=== PATIENT | male | born 1950 | race Caucasian/White ===

== ENCOUNTER → 2017-04-02 | Outpatient (CLI) | payer MEDICARE ==
[2017-04-02 11:45] LABS: Cholesterol 161 mg/dL (<200); HDL Cholesterol 44 mg/dL (40-60)
== END | disposition home or self-care (01) ==
LOC: LABWHC1 10:02
PROVIDERS: ATTEND Family Medicine
DX: E78.5 Hyperlipidemia, unspecified (principal); I10 Essential (primary) hypertension; R73.09 Other abnormal glucose; L02.416 Cutaneous abscess of left lower limb
CPT/HCPCS: 36415; 80061

== ENCOUNTER → 2018-01-31 | Outpatient (CLI) | payer MEDICARE ==
--- NOTE | 2018-02-01 07:04 | MR ---
EXAMINATION TYPE: MR lumbar spine wo con DATE OF EXAM: 01/31/2018 COMPARISON: NONE HISTORY: Low back pain for 30 years into buttocks and left leg per patient. Low back pain per order. TECHNIQUE: Multiplanar, multisequence imaging of the lumbar spine is performed without IV contrast. FINDINGS: Survey images show S-shaped scoliosis dextroconvex at L3 level and levoconvex at L1 level. Sagittal images of the lumbar spine show vertebral body heights to appear satisfactory. Multilevel di sc desiccation with mild to moderate multilevel disc space narrowing that has relative sparing of L4- L5 and L5-S1 levels is present. Multilevel small posterior disc herniations are seen effacing anterio r thecal sac on sagittal images. The conus medullaris is slightly low in position ending L1-L2 disc space level. No abnormal signal is present. No suspicious clumping of lumbosacral nerve roots is not ed. There is overall heterogeneity with mild to moderate multilevel spurring in the upper lumbar spin e. Axial images at the T12-L1 level show mild broad disc bulge but spinal canal is preserved and bilater al neural foramina are patent. Axial images at the L1-L2 level shows mild to moderate broad disc bulge with right lateral disc protr usion component. There is effacement of the anterolateral thecal sac on axial image 22. There is asym metric mild right-sided anterior inferior neural foraminal narrowing. Left-sided neural foramen is pa tent. Axial images at the L2-L3 level shows moderate broad disc bulge effacing anterior thecal sac and caus ing asymmetric mild left-sided neural foraminal narrowing. Right-sided neural foramen is patent. Axial images at the L3-L4 level show mild to moderate left greater than right facet degenerative venegas ges and ligament hypertrophy effacing the posterior lateral thecal sac. There is moderate broad disc bulge with central disc protrusion component effacing anterior thecal sac on axial image 12. There is moderate right greater than left bilateral neural foraminal narrowing. Axial images at the L4-L5 level show moderate right greater than left facet degenerative changes and ligament flavum hypertrophy. There is broad-based posterior disc protrusion effacing anterior thecal sac on axial image 7. There is mild to moderate right greater than left bilateral anterior inferior n eural foraminal narrowing. Axial images at the L5-S1 level show moderate to advanced facet degenerative changes bilaterally. Spi nal canal is preserved. Bilateral neural foramina are patent. There are several round T2 hyperintense lesions throughout both kidneys felt to reflect simple cysts, largest is partially exophytic on the left upper pole level laterally measuring 3.1 cm on axial imag e 26. IMPRESSION: S-shaped scoliosis with multilevel degenerative changes as detailed above..
== END | disposition home or self-care (01) ==
LOC: RADMRIMAIN 19:31
PROVIDERS: ATTEND Family Medicine
DX: M48.061 Spinal stenosis, lumbar region without neurogenic claudication (principal); M51.26 Other intervertebral disc displacement, lumbar region; M47.816 Spondylosis without myelopathy or radiculopathy, lumbar region; M41.86 Other forms of scoliosis, lumbar region
CPT/HCPCS: 72148

== ENCOUNTER → 2018-03-28 | Day surgery (SDC) | payer MEDICARE ==
[2018-03-27 09:01] VITALS: BMI 34.4
[~2018-03-28] MED LIST: GLUCAGON 1 MG/ML VIAL ONE; LACTATED RINGERS 1,000 ML IV SCH; LIDOCAINE 1% 20 ML VIAL (10MG/ML) FOR IV START INTRADERMA ONE; PROPOFOL 10 MG/ML 20 ML VIAL IV ONE
[2018-03-28 07:19] VITALS: TEMP 96.8
[2018-03-28 07:24] LABS: Glucose,Whole Blood 127 mg/dL (75-99)
--- NOTE | 2018-03-28 07:57 | P.GSHP ---
History of Present Illness H&P Date: 03/28/18 Chief Complaint: Screening colonoscopy This is a 67-year-old male who presents today for screening colonoscopy. His last colonoscopy over 5 years ago. Past Medical History Past Medical History: Diabetes Mellitus, Hypertension History of Any Multi-Drug Resistant Organisms: None Reported Past Surgical History: Appendectomy, Joint Replacement, Orthopedic Surgery, Tonsillectomy Additional Past Surgical History / Comment(s): Shoulder Arthroscopy; Knee replacement; Colonoscopy Smoking Status: Former smoker - Past Family History Mother Family Medical History: No Reported History Medications and Allergies Home Medications Medication Instructions Recorded Confirmed Type Allopurinol [Zyloprim] 300 mg PO DAILY 03/27/18 03/27/18 History Citalopram Hydrobromide 10 mg PO DAILY 03/27/18 03/27/18 History [Citalopram HBr] Omeprazole 20 mg PO DAILY 03/27/18 03/27/18 History Ramipril [Altace] 5 mg PO DAILY 03/27/18 03/27/18 History metFORMIN HCL 1,000 mg PO DAILY 03/27/18 03/27/18 History Allergies Allergy/AdvReac Type Severity Reaction Status Date / Time No Known Allergies Allergy Verified 03/28/18 07:01 Surgical - Exam Vital Signs Temp Pulse Resp BP Pulse Ox 96.8 F L 75 18 176/89 96 03/28/18 07:05 03/28/18 07:05 03/28/18 07:05 03/28/18 07:05 03/28/18 07:05 - General well developed, no distress - Eyes PERRL - ENT normal pinna - Neck no masses - Respiratory normal expansion - Cardiovascular Rhythm: regular - Abdomen Abdomen: soft, non tender Results - Labs Abnormal Lab Results - Last 24 Hours (Table) 03/28/18 Range/Units 07:16 POC Glucose (mg/dL) 127 H (75-99) mg/dL Assessment and Plan Assessment: We'll perform screening colonoscopy.
--- NOTE | 2018-03-28 08:15 | P.OP ---
Date of Procedure: 03/28/18 Preoperative Diagnosis: Screening colonoscopy Postoperative Diagnosis: Diverticulosis Procedure(s) Performed: Colonoscopy Anesthesia: MAC Surgeon: Danielito Cohen Pathology: none sent Condition: stable Disposition: PACU Description of Procedure: Patient's placed on the operative table in the lateral position. He received IV sedation. Digital rectal exam was performed which revealed no significant abnormalities. The prostate was symmetric without nodules. The flexor colonoscope was then placed patient anus and passed throughout the colon. The scope could not be advanced beyond the splenic flexure secondary to tortuosity valve. The patient's colon was extremely tortuous with evidence of diverticular changes. Glucagon was given. The scope could not be passed beyond the splenic flexure. This point scope was withdrawn. The descending colon had diverticulosis. In the sigmoid colon there is extensive diverticular changes. Scope summer back the rectum and this appeared normal. Scope was withdrawn for patient. Patient was scheduled for a barium enema.
[2018-03-28 08:18] VITALS: PULSE 66; RESP 16
[2018-03-28 08:51] VITALS: BP 160/79
--- NOTE | 2018-03-28 11:12 | FL ---
EXAMINATION TYPE: FL barium enema DATE OF EXAM: 03/28/2018 COMPARISON: NONE HISTORY: Failed colonoscopy TECHNIQUE: A double contrast barium enema study is performed. 3 minutes and 4 seconds of fluoroscopy utilized and 35 images submitted. FINDINGS: Documentum Consultant view of the abdomen shows overall non-obstructive bowel gas pattern. Postsurgical ch franchesca left hip, severe arthropathy right hip, and multilevel degenerative disc disease noted. No evidence of any mass or polyp, obstructing or constricting lesion throughout the colon. Extensive diverticular changes of the sigmoid colon with wall thickening. No obstruction. Scattered diverticula are seen throughout the remaining portion of the colon. There is somewhat limited assessment of the right colon due to retained fecal debris and retained water. IMPRESSION: 1. Extensive diverticulosis with the most marked findings involving the sigmoid colon which could be correlated with direct visualization.
== END ==
LOC: ORWHC2ENDO 06:40
PROVIDERS: ATTEND Surgery
DX: Z12.11 Encounter for screening for malignant neoplasm of colon (principal); K57.30 Diverticulosis of large intestine without perforation or abscess without bleeding; Q43.8 Other specified congenital malformations of intestine; E11.9 Type 2 diabetes mellitus without complications; I10 Essential (primary) hypertension; K21.9 Gastro-esophageal reflux disease without esophagitis; Z79.84 Long term (current) use of oral hypoglycemic drugs; Z79.899 Other long term (current) drug therapy; Z96.659 Presence of unspecified artificial knee joint; Z87.891 Personal history of nicotine dependence
CPT/HCPCS: 74270; J1610; J2704; G0104

== ENCOUNTER → 2018-04-04 | Outpatient (CLI) | payer MEDICARE ==
[2018-04-04 17:53] LABS: HCT 42.4 % (39.0-53.0); HGB 14.8 gm/dL (13.0-17.5); MCH 30.3 pg (25.0-35.0); MCHC 34.9 g/dL (31.0-37.0); MCV 86.9 fL (80.0-100.0); Mean Platelet Volume 6.7; Platelet Count 193 k/uL (150-450); RBC 4.88 m/uL (4.30-5.90); RDW 13.7 % (11.5-15.5); WBC 6.9 k/uL (3.8-10.6)
[2018-04-04 18:00] LABS: Potassium 4.5 mmol/L (3.5-5.1)
== END | disposition home or self-care (01) ==
LOC: LABPAT 16:46
PROVIDERS: ATTEND Surgery
DX: Z01.818 Encounter for other preprocedural examination (principal); Z01.812 Encounter for preprocedural laboratory examination; K57.32 Diverticulitis of large intestine without perforation or abscess without bleeding
CPT/HCPCS: 36415; 80051; 85027; 86850; 86900; 86901; 93005

== ENCOUNTER 2018-04-07 08:41 | Inpatient (IN) | payer MEDICARE ==
[2018-04-05 14:13] VITALS: BMI 34.4
[~2018-04-07 08:41] MED LIST changes: +DEXAMETHASONE SOD PHOSPHATE 10 MG/ML 1 ML VIAL IV ONE; -GLUCAGON 1 MG/ML VIAL ONE; +HEPARIN SODIUM,PORCINE 5,000 UNIT/ML 1 ML VIAL SQ ONE; +HYDROmorphone 1 MG/ML 1 ML SYRINGE IVP PRN; -LACTATED RINGERS 1,000 ML IV SCH; -LIDOCAINE 1% 20 ML VIAL (10MG/ML) FOR IV START INTRADERMA ONE; +MIDAZOLAM 2 MG/2 ML VIAL IV PRN; +ONDANSETRON 4 MG/2 ML VIAL IVP ONE; -PROPOFOL 10 MG/ML 20 ML VIAL IV ONE; +ceFAZolin IN SWFI 2 GM/20 ML SYRINGE IVP ONE; +metroNIDAZOLE-NS PMX 500 MG in SALINE 1 100ML.BAG IVPB ONE
[2018-04-07] MEDS: LACTATED RINGERS 1,000 ML IV SCH (09:28)
[2018-04-07 09:31] LABS: Glucose,Whole Blood 101 mg/dL (75-99)
[2018-04-07] MEDS ORDERED: NALOXONE 0.4 MG/ML 1 ML VIAL IV PRN (10:56)
[2018-04-07] MEDS ORDERED: ALVIMOPAN 12 MG CAPSULE PO ONE (11:21)
[2018-04-07] MEDS ORDERED: ACETAMINOPHEN TAB 500 MG TAB PO STA (11:24)
--- NOTE | 2018-04-07 11:24 | P.GSHP ---
History of Present Illness H&P Date: 04/07/18 Chief Complaint: diverticulitis this is a 67-year-old male referred from Dr. Andnio. Patient rents today for low anterior section. Patient has had chronic history of diverticulitis. Patient states that he has hadave diverticulitis over the last 20 years.patient presents today for sigmoid colectomy with low anterior section. Patient with a risk of colostomy, wound infection, bleeding - Constitutional Constitutional: Reports as per HPI Past Medical History Past Medical History: Diabetes Mellitus, Hypertension Additional Past Medical History / Comment(s): diverticulitis-narrowing bowel History of Any Multi-Drug Resistant Organisms: None Reported Past Surgical History: Appendectomy, Joint Replacement, Orthopedic Surgery, Tonsillectomy Additional Past Surgical History / Comment(s): Shoulder Arthroscopy; Knee replacement; Colonoscopy Past Anesthesia/Blood Transfusion Reactions: No Reported Reaction Additional Past Anesthesia/Blood Transfusion Reaction / Comment(s): no hx blood transfusion Smoking Status: Former smoker - Past Family History Mother Family Medical History: No Reported History Medications and Allergies Home Medications Medication Instructions Recorded Confirmed Type Allopurinol [Zyloprim] 300 mg PO DAILY 03/27/18 04/07/18 History Omeprazole 20 mg PO QAM 03/27/18 04/07/18 History Ramipril [Altace] 5 mg PO QAM 03/27/18 04/07/18 History metFORMIN HCL 1,000 mg PO DAILY 03/27/18 04/07/18 History Escitalopram [Lexapro] 10 mg PO QAM 04/05/18 04/07/18 History Allergies Allergy/AdvReac Type Severity Reaction Status Date / Time No Known Allergies Allergy Verified 04/05/18 12:48 Surgical - Exam Vital Signs Temp Pulse Resp BP Pulse Ox 98.1 F 81 16 139/80 96 04/07/18 09:23 04/07/18 09:23 04/07/18 09:23 04/07/18 09:23 04/07/18 09:23 - General well developed, well nourished, no distress - Eyes PERRL - ENT normal pinna - Neck no masses - Respiratory normal expansion - Cardiovascular Rhythm: regular - Abdomen mild left lower quadrant. Abdomen: soft Results - Labs Abnormal Lab Results - Last 24 Hours (Table) 04/07/18 Range/Units 09:27 POC Glucose (mg/dL) 101 H (75-99) mg/dL Assessment and Plan Assessment: history of chronic diverticulitis. We will perform a low anterior resection.
[2018-04-07] MEDS ORDERED: MELOXICAM 7.5 MG TAB PO STA (11:27)
[2018-04-07] MEDS ORDERED: PROPOFOL 10 MG/ML 20 ML VIAL IV ONE (12:17)
[2018-04-07] MEDS ORDERED: LIDOCAINE 1% INJ 10MG/ML (20 ML MDV) ONE (12:17)
[2018-04-07] MEDS ORDERED: ROCURONIUM BROMIDE 10 MG/ML 10 ML VIAL IV ONE (12:17)
[2018-04-07] MEDS ORDERED: SUCCINYLCHOLINE CHLORIDE 100 MG/5 ML SYR IV ONE (12:17)
[2018-04-07] MEDS ORDERED: MIDAZOLAM 2 MG/2 ML VIAL ONE (12:17)
[2018-04-07] MEDS ORDERED: ePHEDrine SULFATE/0.9% NACL/PF 50 MG/5 ML SYRINGE IV ONE (12:17)
[2018-04-07] MEDS ORDERED: GLYCOPYRROLATE 0.2 MG/ML 2 ML VIAL ONE (12:17)
[2018-04-07] MEDS ORDERED: PHENYLEPHRINE-0.9% NACL SYG 1 MG/10 ML SYRINGE ONE (12:17)
[2018-04-07] MEDS ORDERED: fentaNYL (PF) 50 MCG/ML 2 ML AMP ONE (12:17)
[2018-04-07] MEDS ORDERED: NEOSTIGMINE 1 MG/ML 10 ML VIAL ONE (12:17)
[2018-04-07] MEDS ORDERED: LACTATED RINGERS 1,000 ML IV ONE ×4 (12:57→15:06)
[2018-04-07] MEDS: ROPIVACAINE 250 MG, HYDROMORPHONE (PF) 5 MG in SODIUM CHLORIDE 0.9% 200 ML EPIDURAL PRN ×3 (14:12→15:25)
[2018-04-07] MEDS ORDERED: HYDROmorphone 1 MG/ML 1 ML SYRINGE IVP PRN (15:06)
[2018-04-07] MEDS ORDERED: ONDANSETRON 4 MG/2 ML VIAL IVP PRN (15:06)
[2018-04-07] MEDS ORDERED: METOCLOPRAMIDE 5 MG/ML 2 ML VIAL IVP PRN (15:06)
[2018-04-07] MEDS ORDERED: BENZOCAINE/MENTHOL LOZENG 1 EACH LOZENGE MUCOUS MEM PRN (15:06)
--- NOTE | 2018-04-07 15:41 | P.OP ---
Date of Procedure: 04/07/18 Preoperative Diagnosis: diverticulitis Ventral hernia Postoperative Diagnosis: diverticulitis Ventral hernia incarcerated Procedure(s) Performed: low anterior section Repair of incarcerated ventral hernia Partial omentectomy Anesthesia: ARPITA Surgeon: Danielito Cohen Estimated Blood Loss (ml): 50 Pathology: other (omentum) Condition: stable Disposition: PACU Description of Procedure: tDESCRIPTION OF PROCEDURE: The patient was placed on the operating table in the supine position. Patient received a general anesthesia. Patient was then placed in the dorsal lithotomy position. The patients abdomen was prepped and draped in the usual sterile fashion. the patient had a small ventral hernia located above the bellybutton.Through a low midline incision, the abdomen was entered. the incarcerated omentum was transected free from the hernia. The [place] retractor was placed in the wound. The stomach appeared normal. The small bowel appeared normal. The liver appeared normal. The right colon and transverse colon appeared normal. On the left colon, there was an extensive diverticulosis noted. The sigmoid colon was then mobilized by dividing the white line of Toldt with electrocautery. At this point, the proximal sigmoid colon was transected with a GI stapler after a window had been made in the mesentery. The distal sigmoid colon was then dissected. Mesentery was taken down between Spring clamps and ligated with #0 silk ties. At a point beyond the lesion, the bowel was then transected with a Proximate stapler. This was then removed. The splenic flexure was then taken down in order to provide adequate lengthening of the sigmoid colon. At this point, the auto purse-string suture device was placed across the proximal colon and fired. The colon was then opened. The 29 mm EEA anvil was then placed into the colon and then the purse- string was secured. The EEA stapler device was then placed in the patients anus and passed into the rectum. The nail for the EEA was then brought out through the distal rectum and then attached to the anvil. The EEA stapler device was then fired. The anastomosis was inspected. There were 2 good donuts of tissue removed from the EEA stapler. The anastomosis was then tested under water and there was no air leak seen. At this point the abdomen was then irrigated. There was no bleeding seen. The fascia was then closed with double stranded #1 PDS. the hernia repair was closed with the fascial closure.The skin was closed with virgilio. The patient tolerated the procedure well.
[2018-04-07 16:24] LABS: Glucose,Whole Blood 164 mg/dL (75-99)
[2018-04-07] MEDS: D5-0.45% NACL WITH KCL 20MEQ/L 1,000 ML IV SCH (17:17)
[2018-04-07] MEDS: HEPARIN SODIUM,PORCINE 5,000 UNIT/ML 1 ML VIAL SQ SCH (17:17)
[2018-04-07] MEDS ORDERED: diphenhydrAMINE 50 MG/ML 1 ML VIAL IVP PRN (17:21)
[2018-04-07 17:39] LABS: Basophils % (A) 0 %; Eosinophils % (A) 0 %; HCT 39.6 % (39.0-53.0); HGB 13.5 gm/dL (13.0-17.5); Lymphocytes # (A) 0.8 k/uL (1.0-4.8); Lymphocytes % (A) 6 %; MCH 30.2 pg (25.0-35.0); MCHC 34.2 g/dL (31.0-37.0); MCV 88.3 fL (80.0-100.0); Mean Platelet Volume 6.7; Monocytes # (A) 0.7 k/uL (0-1.0); Monocytes % (A) 6 %; Neutrophils # (A) 11.1 k/uL (1.3-7.7); Neutrophils % (A) 88 %; Platelet Count 187 k/uL (150-450); RBC 4.48 m/uL (4.30-5.90); RDW 13.9 % (11.5-15.5); WBC 12.6 k/uL (3.8-10.6)
[2018-04-07 18:34] LABS: Anion Gap 9 mmol/L; Blood Urea Nitrogen 20 mg/dL (9-20); Calcium 8.5 mg/dL (8.4-10.2); Carbon Dioxide 27 mmol/L (22-30); Chloride 101 mmol/L (98-107); Glucose 158 mg/dL (74-99); Potassium 4.7 mmol/L (3.5-5.1); Sodium 137 mmol/L (137-145)
[2018-04-07] MEDS: FAMOTIDINE 20 MG/2 ML VIAL IV SCH (21:01)
[2018-04-07] MEDS: NALBUPHINE 10 MG/ML VIAL (10ML MDV) IV PRN (23:14)
[2018-04-08] MEDS: D5-0.45% NACL WITH KCL 20MEQ/L 1,000 ML IV SCH ×3 (02:32→23:06)
[2018-04-08] MEDS: HEPARIN SODIUM,PORCINE 5,000 UNIT/ML 1 ML VIAL SQ SCH ×3 (02:33→16:30)
[2018-04-08] MEDS: NALBUPHINE 10 MG/ML VIAL (10ML MDV) IV PRN ×3 (05:27→20:35)
[2018-04-08] MEDS: LACTATED RINGERS 1,000 ML IV SCH (08:28)
[2018-04-08] MEDS: FAMOTIDINE 20 MG/2 ML VIAL IV SCH ×2 (08:28→20:34)
[2018-04-08] MEDS: ALVIMOPAN 12 MG CAPSULE PO SCH ×2 (08:28→20:33)
--- NOTE | 2018-04-08 08:45 | P.CONS ---
History of Present Illness - Reason for Consult Consult date: 04/08/18 Physical management of diabetes and hypertension - History of Present Illness Toby is a 67-year-old white male well-known to me. He is status post low anterior resection and repair of incarcerated ventral hernia amount of partial omentectomy for ongoing diverticulitis. Feeling well this morning. He has a little anesthetic still in place. His pain is shoulder this time. He denies any chest pains, pressures, or shortness of breath. He denies any nausea or vomiting recently. He is been nothing by mouth till this morning. He has been advanced to clear liquid diet. His sugars and blood pressure remained controlled. Review of Systems All systems: negative Past Medical History Past Medical History: Diabetes Mellitus, Hypertension Additional Past Medical History / Comment(s): diverticulitis-narrowing bowel, Goutt, MRSA right knee January 2017 History of Any Multi-Drug Resistant Organisms: None Reported Past Surgical History: Appendectomy, Joint Replacement, Orthopedic Surgery, Tonsillectomy Additional Past Surgical History / Comment(s): Shoulder Arthroscopy; Colonoscopy Past Anesthesia/Blood Transfusion Reactions: No Reported Reaction Additional Past Anesthesia/Blood Transfusion Reaction / Comm: no hx blood transfusion Past Psychological History: No Psychological Hx Reported Smoking Status: Former smoker Past Alcohol Use History: Occasional Additional Past Alcohol Use History / Comment(s): smoked from teens until age 49 ; smoked 1 1/2 - 2 ppd Past Drug Use History: None Reported - Past Family History Mother Family Medical History: No Reported History Medications and Allergies Home Medications Medication Instructions Recorded Confirmed Type Allopurinol [Zyloprim] 300 mg PO DAILY 03/27/18 04/07/18 History Omeprazole 20 mg PO QAM 03/27/18 04/07/18 History Ramipril [Altace] 5 mg PO QAM 03/27/18 04/07/18 History metFORMIN HCL 1,000 mg PO DAILY 03/27/18 04/07/18 History Escitalopram [Lexapro] 10 mg PO QAM 04/05/18 04/07/18 History Allergies Allergy/AdvReac Type Severity Reaction Status Date / Time No Known Allergies Allergy Verified 04/07/18 17:16 Physical Exam Vitals: Vital Signs Temp Pulse Resp BP Pulse Ox 04/08/18 03:01 96.8 F L 82 16 106/66 95 04/07/18 20:17 98.6 F 84 16 123/74 94 L 04/07/18 19:03 83 131/75 04/07/18 18:45 73 119/70 04/07/18 18:30 71 117/78 04/07/18 18:15 68 121/76 04/07/18 18:00 67 120/80 04/07/18 17:45 97.8 F 68 16 121/75 95 04/07/18 16:10 61 16 125/63 98 04/07/18 15:50 62 16 97/58 96 04/07/18 15:35 65 16 96/56 95 04/07/18 15:20 58 L 16 92/50 96 04/07/18 15:15 58 L 16 92/55 93 L 04/07/18 14:57 60 16 99/58 94 L 04/07/18 14:42 66 16 145/87 93 L 04/07/18 14:27 67 16 141/73 94 L 04/07/18 14:12 98 F 72 16 138/70 96 04/07/18 10:40 89 15 102/61 95 04/07/18 09:23 98.1 F 81 16 139/80 96 Intake and Output 04/07/18 04/08/18 04/08/18 22:59 06:59 14:59 Intake Total 1147 Output Total 1700 Balance 1147 -1700 Intake: IV 1067 Intake, IV Titration 80 Amount Lactated Ringers 1,000 ml 80 @ 20 mls/hr IV .Q24H [facility] Rx#:[id number] Output: Urine 1700 Other: Voiding Method Indwelling Catheter Weight 99.79 kg GENERAL: Well-appearing, well-nourished and in no acute distress. HEAD: Atraumatic, normocephalic. EYES: Pupils equal round and reactive to light, extraocular movements intact, sclera anicteric, conjunctiva are normal. ENT:nares patent, oropharynx clear without exudates. Moist mucous membranes. NECK: Normal range of motion, supple without lymphadenopathy or JVD, no thyromegaly LUNGS: Breath sounds clear to auscultation bilaterally and equal. No wheezes rales or rhonchi. HEART: Regular rate and rhythm without murmurs, rubs or gallops.S1S2 Normal ABDOMEN: Soft hypoactive bowel sounds, abdomen is palpated minimally due to his recent abdominal surgery. It is slightly distended this morning. EXTREMITIES: Normal range of motion, no pitting or edema. No clubbing or cyanosis. NEUROLOGICAL: Cranial nerves II through XII grossly intact. Normal speech, normal gait. PSYCH: Normal mood, normal affect. SKIN: Warm, Dry, normal turgor, no rashes or lesions noted. Results CBC & Chem 7: 04/07/18 16:54 04/07/18 16:54 Labs: Abnormal Lab Results - Last 24 Hours (Table) 04/07/18 04/07/18 04/07/18 Range/Units 09:27 16:13 16:54 WBC 12.6 H (3.8-10.6) k/uL Neutrophils # 11.1 H (1.3-7.7) k/uL Lymphocytes # 0.8 L (1.0-4.8) k/uL Glucose (74-99) mg/dL POC Glucose (mg/dL) 101 H 164 H (75-99) mg/dL 04/07/18 Range/Units 16:54 WBC (3.8-10.6) k/uL Neutrophils # (1.3-7.7) k/uL Lymphocytes # (1.0-4.8) k/uL Glucose 158 H (74-99) mg/dL POC Glucose (mg/dL) (75-99) mg/dL Assessment and Plan (1) Essential (primary) hypertension Current Visit: Yes Status: Chronic Code(s): I10 - ESSENTIAL (PRIMARY) HYPERTENSION SNOMED Code(s): 02449779 (2) Type 2 diabetes mellitus without complications Current Visit: Yes Status: Chronic Code(s): E11.9 - TYPE 2 DIABETES MELLITUS WITHOUT COMPLICATIONS SNOMED Code(s): 750949340 (3) S/P ventral herniorrhaphy Current Visit: Yes Status: Acute Code(s): Z98.890 - OTHER SPECIFIED POSTPROCEDURAL STATES; Z87.19 - PERSONAL HISTORY OF OTHER DISEASES OF THE DIGESTIVE SYSTEM SNOMED Code(s): 97386285704208 (4) Diverticulosis Current Visit: Yes Status: Chronic Code(s): K57.90 - DVRTCLOS OF INTEST, PART UNSP, W/O PERF OR ABSCESS W/O BLEED SNOMED Code(s): 44816189 (5) History of abdominal surgery Current Visit: Yes Status: Acute Code(s): Z98.890 - OTHER SPECIFIED POSTPROCEDURAL STATES SNOMED Code(s): 827458233 (6) Gout Current Visit: Yes Status: Chronic Code(s): M10.9 - GOUT, UNSPECIFIED SNOMED Code(s): 10003269 (7) Moderate major depression Current Visit: Yes Status: Chronic Code(s): F32.1 - MAJOR DEPRESSIVE DISORDER, SINGLE EPISODE, MODERATE SNOMED Code(s): 296173 Plan: Management and diet advanced per surgery. Is currently on subcutaneous heparin for DVT prophylaxis. He can remain on insulin scale at this time for diabetic control. He can restart his Lexapro, allopurinol, and Altase today. He'll restart metformin tomorrow. Thank you for allowing me to participate in this patient's care.
[2018-04-08] MEDS: ESCITALOPRAM 10 MG TAB PO SCH (10:33)
[2018-04-08] MEDS: ALLOPURINOL 300 MG TAB PO SCH (10:35)
[2018-04-08] MEDS: LISINOPRIL 20 MG TAB PO SCH (10:36)
[2018-04-08] MEDS ORDERED: ONDANSETRON 4 MG/2 ML VIAL IVP PRN (11:24)
--- NOTE | 2018-04-08 11:24 | P.PN ---
Progress Note - Text Progress Note Date: 04/08/18 67-year-old male status post low anterior resection postop and her 1 epidural catheter day #2. Patient has no motor sensory deficits. VAS is a 1 out of 10 in severity. Patient has not yet ambulated. Patient had complain of significant pruritus and Nubain 2.5 mg IV every 6 hours was written for him last night, however patient still has complaints. I will add Zofran 4 mg every 8 hours and if it doesn't improve by the end of the day likely ordering the epidural solution without narcotic. Plan is to continue epidural settings at 4 ML's an hour.
[2018-04-08 12:17] LABS: Glucose,Whole Blood 122 mg/dL (75-99)
--- NOTE | 2018-04-08 12:29 | P.PN ---
Subjective Progress Note Date: 04/08/18 Principal diagnosis: Diverticulitis Patient doing well today. Epidurals controlling his pain nicely. He did pass flatus. No labs thus far from today. He is tolerating his clears and asking for more to eat. Objective - Vital Signs Vital signs: Vital Signs Temp 98.6 F 04/08/18 07:00 Pulse 78 04/08/18 07:00 Resp 18 04/08/18 07:00 BP 138/76 04/08/18 07:00 Pulse Ox 95 04/08/18 07:00 Intake & Output 04/07/18 04/08/18 04/08/18 18:59 06:59 18:59 Intake Total 3067 80 Output Total 300 1700 Balance 2767 -1620 Weight 99.79 kg Intake: IV 3067 Intake, IV Titration 80 Amount Lactated Ringers 1,000 ml 80 @ 20 mls/hr IV .Q24H [facility] Rx#:[id number] Output: Urine 250 1700 Estimated Blood Loss 50 Other: Voiding Method Indwelling Catheter Indwelling Catheter - Exam Abdomen: Soft, nondistended, incision clean and dry, mild tenderness - Labs CBC & Chem 7: 04/07/18 16:54 04/07/18 16:54 Labs: Abnormal Lab Results - Last 24 Hours (Table) 04/07/18 04/07/18 04/07/18 Range/Units 16:13 16:54 16:54 WBC 12.6 H (3.8-10.6) k/uL Neutrophils # 11.1 H (1.3-7.7) k/uL Lymphocytes # 0.8 L (1.0-4.8) k/uL Glucose 158 H (74-99) mg/dL POC Glucose (mg/dL) 164 H (75-99) mg/dL 04/08/18 Range/Units 12:16 WBC (3.8-10.6) k/uL Neutrophils # (1.3-7.7) k/uL Lymphocytes # (1.0-4.8) k/uL Glucose (74-99) mg/dL POC Glucose (mg/dL) 122 H (75-99) mg/dL Assessment and Plan (1) Diverticulosis Narrative/Plan: Increase diet to full liquids. Ambulate. Keep epidural and Johansen catheter. Check labs. Current Visit: Yes Status: Chronic Code(s): K57.90 - DVRTCLOS OF INTEST, PART UNSP, W/O PERF OR ABSCESS W/O BLEED SNOMED Code(s): 12154765
[2018-04-08] MEDS: INSULIN ASPART 100 UNIT/ML 1 ML 10 ML VIAL SQ SCH ×3 (12:41→20:34)
[2018-04-08 13:23] LABS: Basophils % (A) 0 %; Eosinophils % (A) 0 %; HCT 39.4 % (39.0-53.0); HGB 13.2 gm/dL (13.0-17.5); Lymphocytes # (A) 1.7 k/uL (1.0-4.8); Lymphocytes % (A) 17 %; MCH 29.3 pg (25.0-35.0); MCHC 33.5 g/dL (31.0-37.0); MCV 87.6 fL (80.0-100.0); Mean Platelet Volume 7.5; Monocytes # (A) 0.8 k/uL (0-1.0); Monocytes % (A) 8 %; Neutrophils # (A) 7.5 k/uL (1.3-7.7); Neutrophils % (A) 73 %; Platelet Count 190 k/uL (150-450); RBC 4.49 m/uL (4.30-5.90); RDW 13.9 % (11.5-15.5); WBC 10.3 k/uL (3.8-10.6)
[2018-04-08 13:42] LABS: Anion Gap 7 mmol/L; Blood Urea Nitrogen 16 mg/dL (9-20); Calcium 8.7 mg/dL (8.4-10.2); Carbon Dioxide 30 mmol/L (22-30); Chloride 99 mmol/L (98-107); Glucose 113 mg/dL (74-99); Potassium 4.4 mmol/L (3.5-5.1); Sodium 136 mmol/L (137-145)
[2018-04-08 16:32] LABS: Glucose,Whole Blood 106 mg/dL (75-99)
[2018-04-08 19:43] LABS: Hemoglobin A1C 5.4 % (4.0-6.0)
[2018-04-08 20:00] LABS: Glucose,Whole Blood 152 mg/dL (75-99)
[2018-04-09] MEDS: HEPARIN SODIUM,PORCINE 5,000 UNIT/ML 1 ML VIAL SQ SCH ×3 (01:22→15:22)
[2018-04-09] MEDS: NALBUPHINE 10 MG/ML VIAL (10ML MDV) IV PRN (01:36)
[2018-04-09 07:09] LABS: Glucose,Whole Blood 117 mg/dL (75-99)
[2018-04-09] MEDS: INSULIN ASPART 100 UNIT/ML 1 ML 10 ML VIAL SQ SCH ×4 (08:08→21:59)
[2018-04-09 08:34] LABS: Basophils % (A) 0 %; Eosinophils # (A) 0.2 k/uL (0-0.7); Eosinophils % (A) 2 %; HCT 38.7 % (39.0-53.0); HGB 13.1 gm/dL (13.0-17.5); Lymphocytes # (A) 1.4 k/uL (1.0-4.8); Lymphocytes % (A) 19 %; MCHC 33.9 g/dL (31.0-37.0); MCV 88.6 fL (80.0-100.0); Mean Platelet Volume 7.3; Monocytes # (A) 0.7 k/uL (0-1.0); Monocytes % (A) 10 %; Neutrophils # (A) 4.8 k/uL (1.3-7.7); Neutrophils % (A) 66 %; Platelet Count 158 k/uL (150-450); RBC 4.37 m/uL (4.30-5.90); RDW 14.1 % (11.5-15.5); WBC 7.3 k/uL (3.8-10.6)
[2018-04-09 08:40] LABS: Anion Gap 8 mmol/L; Blood Urea Nitrogen 14 mg/dL (9-20); Calcium 8.6 mg/dL (8.4-10.2); Carbon Dioxide 25 mmol/L (22-30); Chloride 104 mmol/L (98-107); Glucose 110 mg/dL (74-99); Potassium 4.7 mmol/L (3.5-5.1); Sodium 137 mmol/L (137-145)
[2018-04-09] MEDS: D5-0.45% NACL WITH KCL 20MEQ/L 1,000 ML IV SCH ×4 (10:21→18:00)
[2018-04-09] MEDS: ESCITALOPRAM 10 MG TAB PO SCH (10:22)
[2018-04-09] MEDS: ALVIMOPAN 12 MG CAPSULE PO SCH ×2 (10:22→21:59)
[2018-04-09] MEDS: PANTOPRAZOLE 40 MG TABLET PO SCH (10:22)
[2018-04-09] MEDS: ALLOPURINOL 300 MG TAB PO SCH (10:22)
[2018-04-09] MEDS: LISINOPRIL 20 MG TAB PO SCH (10:23)
[2018-04-09] MEDS: metFORMIN 500 MG TAB PO SCH (10:23)
[2018-04-09] MEDS: FAMOTIDINE 20 MG/2 ML VIAL IV SCH ×2 (10:23→21:59)
--- NOTE | 2018-04-09 11:01 | P.PN ---
Subjective Progress Note Date: 04/09/18 Principal diagnosis: Diverticulitis Patient's epidural rate decreased to 2.5 because of itching. Pain has increased somewhat however. Describes bloating. He is passing flatus. Denies nausea or vomiting. White blood cell count 7.3. Objective - Vital Signs Vital signs: Vital Signs Temp 98.7 F 04/08/18 23:22 Pulse 75 04/08/18 23:22 Resp 17 04/08/18 23:22 BP 109/61 04/08/18 23:22 Pulse Ox 94 L 04/08/18 21:05 Intake & Output 04/08/18 04/09/18 04/09/18 18:59 06:59 18:59 Intake Total 1540 1310 Output Total 2500 1300 Balance -2500 240 1310 Intake: Intake, IV Titration 1040 1010 Amount D5-0.45% NaCl with KCl 1000 1000 20Meq/l 1,000 ml @ 125 mls/hr IV .Q8H [facility] Rx#: [id number] Ropivacaine 250 mg 40 10 Hydromorphone (Pf) 5 mg In Sodium Chloride 0.9% 200 ml @ Per Protocol EPIDURAL .Q0M PRN Rx#: [id number] Oral 500 300 Output: Urine 2500 1300 Other: Voiding Method Indwelling Catheter Indwelling Catheter # Voids 0 - Exam Abdomen: Soft, mild distention, mild tenderness, incision clean and dry - Labs CBC & Chem 7: 04/09/18 07:57 04/09/18 07:57 Labs: Abnormal Lab Results - Last 24 Hours (Table) 04/08/18 04/08/18 04/08/18 Range/Units 12:16 13:13 16:31 Hct (39.0-53.0) % Sodium 136 L (137-145) mmol/L Glucose 113 H (74-99) mg/dL POC Glucose (mg/dL) 122 H 106 H (75-99) mg/dL 04/08/18 04/09/18 04/09/18 Range/Units 19:58 07:08 07:57 Hct 38.7 L (39.0-53.0) % Sodium (137-145) mmol/L Glucose (74-99) mg/dL POC Glucose (mg/dL) 152 H 117 H (75-99) mg/dL 04/09/18 Range/Units 07:57 Hct (39.0-53.0) % Sodium (137-145) mmol/L Glucose 110 H (74-99) mg/dL POC Glucose (mg/dL) (75-99) mg/dL Assessment and Plan (1) Diverticulosis Narrative/Plan: Increase activity level. Increase epidural rate to 4. Stay on liquids only. Current Visit: Yes Status: Chronic Code(s): K57.90 - DVRTCLOS OF INTEST, PART UNSP, W/O PERF OR ABSCESS W/O BLEED SNOMED Code(s): 23621345
[2018-04-09] MEDS: LACTATED RINGERS 1,000 ML IV SCH (11:36)
[2018-04-09 11:55] LABS: Glucose,Whole Blood 135 mg/dL (75-99)
--- NOTE | 2018-04-09 13:44 | P.PN ---
Subjective Toby is a 67-year-old white male well-known to me. He is status post low anterior resection and repair of incarcerated ventral hernia amount of partial omentectomy for ongoing diverticulitis. Feeling well this morning. He has a little anesthetic still in place. His pain is shoulder this time. He denies any chest pains, pressures, or shortness of breath. He denies any nausea or vomiting recently. He is been nothing by mouth till this morning. He has been advanced to clear liquid diet. His sugars and blood pressure remained controlled. 04/09/2018: Toby is pain is controlled with an epidural. He has some itching with this. He denies any nausea or vomiting. He indicates he is passing flatus. He has full liquid diet currently. He denies any chest pains, pressures or shortness of breath. Objective - Vital Signs Vital signs: Vital Signs Temp 97.5 F L 04/09/18 07:00 Pulse 77 04/09/18 07:00 Resp 16 04/09/18 07:00 BP 135/87 04/09/18 07:00 Pulse Ox 94 L 04/09/18 07:00 Intake & Output 04/08/18 04/09/18 04/09/18 18:59 06:59 18:59 Intake Total 1540 1310 Output Total 2500 1300 Balance -2500 240 1310 Intake: Intake, IV Titration 1040 1010 Amount D5-0.45% NaCl with KCl 1000 1000 20Meq/l 1,000 ml @ 125 mls/hr IV .Q8H [facility] Rx#: [id number] Ropivacaine 250 mg 40 10 Hydromorphone (Pf) 5 mg In Sodium Chloride 0.9% 200 ml @ Per Protocol EPIDURAL .Q0M PRN Rx#: [id number] Oral 500 300 Output: Urine 2500 1300 Other: Voiding Method Indwelling Catheter Indwelling Catheter # Voids 0 - Exam GENERAL: Well-appearing, well-nourished and in no acute distress. NECK: Normal range of motion, supple without lymphadenopathy or JVD, no thyromegaly LUNGS: Breath sounds clear to auscultation bilaterally and equal. No wheezes rales or rhonchi. HEART: Regular rate and rhythm without murmurs, rubs or gallops.S1S2 Normal ABDOMEN: Soft normoactive bowel sounds, abdomen is palpated minimally due to his recent abdominal surgery. It is slightly distended this morning. EXTREMITIES: Normal range of motion, no pitting or edema. No clubbing or cyanosis. NEUROLOGICAL: Cranial nerves II through XII grossly intact. Normal speech, normal gait. PSYCH: Normal mood, normal affect. SKIN: Warm, Dry, normal turgor, no rashes or lesions noted. - Labs CBC & Chem 7: 04/09/18 07:57 04/09/18 07:57 Labs: Abnormal Lab Results - Last 24 Hours (Table) 04/08/18 04/08/18 04/08/18 Range/Units 13:13 16:31 19:58 Hct (39.0-53.0) % Sodium 136 L (137-145) mmol/L Glucose 113 H (74-99) mg/dL POC Glucose (mg/dL) 106 H 152 H (75-99) mg/dL 04/09/18 04/09/18 04/09/18 Range/Units 07:08 07:57 07:57 Hct 38.7 L (39.0-53.0) % Sodium (137-145) mmol/L Glucose 110 H (74-99) mg/dL POC Glucose (mg/dL) 117 H (75-99) mg/dL 04/09/18 Range/Units 11:54 Hct (39.0-53.0) % Sodium (137-145) mmol/L Glucose (74-99) mg/dL POC Glucose (mg/dL) 135 H (75-99) mg/dL Assessment and Plan (1) Essential (primary) hypertension Current Visit: Yes Status: Chronic Code(s): I10 - ESSENTIAL (PRIMARY) HYPERTENSION SNOMED Code(s): 03211623 (2) Type 2 diabetes mellitus without complications Current Visit: Yes Status: Chronic Code(s): E11.9 - TYPE 2 DIABETES MELLITUS WITHOUT COMPLICATIONS SNOMED Code(s): 517422296 (3) S/P ventral herniorrhaphy Current Visit: Yes Status: Acute Code(s): Z98.890 - OTHER SPECIFIED POSTPROCEDURAL STATES; Z87.19 - PERSONAL HISTORY OF OTHER DISEASES OF THE DIGESTIVE SYSTEM SNOMED Code(s): 45456198641165 (4) Diverticulosis Current Visit: Yes Status: Chronic Code(s): K57.90 - DVRTCLOS OF INTEST, PART UNSP, W/O PERF OR ABSCESS W/O BLEED SNOMED Code(s): 68513334 (5) History of abdominal surgery Current Visit: Yes Status: Acute Code(s): Z98.890 - OTHER SPECIFIED POSTPROCEDURAL STATES SNOMED Code(s): 617738450 (6) Gout Current Visit: Yes Status: Chronic Code(s): M10.9 - GOUT, UNSPECIFIED SNOMED Code(s): 98780621 (7) Moderate major depression Current Visit: Yes Status: Chronic Code(s): F32.1 - MAJOR DEPRESSIVE DISORDER, SINGLE EPISODE, MODERATE SNOMED Code(s): 123742 Plan: Management and diet advanced per surgery. He Is currently on subcutaneous heparin for DVT prophylaxis. He can remain on insulin scale at this time for diabetic control. Continue home Medications as ordered. He appears to be doing very well. We'll follow him with you as needed.
--- NOTE | 2018-04-09 14:04 | P.PN ---
Progress Note - Text Progress Note Date: 04/09/18 67-year-old male status post low anterior resection postop day #2 epidural catheter day #3. Patient has no motor sensory deficits. VAS is a 3 out of 10 in severity. Patient ambulating. Patient had complaints of pruritus being treated with Nubain and Zofran when necessary,. This has decreased. Current settings at 3 ML's an hour. She tolerating well aerated plan is to continue for 1 more day..
[2018-04-09 17:02] LABS: Glucose,Whole Blood 123 mg/dL (75-99)
[2018-04-09 20:23] LABS: Glucose,Whole Blood 151 mg/dL (75-99)
[2018-04-09] MEDS: ROPIVACAINE 250 MG, HYDROMORPHONE (PF) 5 MG in SODIUM CHLORIDE 0.9% 200 ML EPIDURAL PRN (22:01)
[2018-04-10] MEDS: HEPARIN SODIUM,PORCINE 5,000 UNIT/ML 1 ML VIAL SQ SCH ×4 (01:02→23:45)
[2018-04-10] MEDS: D5-0.45% NACL WITH KCL 20MEQ/L 1,000 ML IV SCH ×3 (03:55→19:56)
[2018-04-10 07:16] LABS: Glucose,Whole Blood 146 mg/dL (75-99)
[2018-04-10] MEDS: PANTOPRAZOLE 40 MG TABLET PO SCH (08:57)
[2018-04-10] MEDS: INSULIN ASPART 100 UNIT/ML 1 ML 10 ML VIAL SQ SCH ×4 (08:57→20:39)
[2018-04-10] MEDS: metFORMIN 500 MG TAB PO SCH (08:58)
[2018-04-10] MEDS: ALLOPURINOL 300 MG TAB PO SCH (08:58)
[2018-04-10] MEDS: LISINOPRIL 20 MG TAB PO SCH (08:58)
[2018-04-10] MEDS: ESCITALOPRAM 10 MG TAB PO SCH (08:58)
[2018-04-10] MEDS: ALVIMOPAN 12 MG CAPSULE PO SCH ×2 (08:58→20:39)
[2018-04-10 11:26] LABS: Glucose,Whole Blood 117 mg/dL (75-99)
[2018-04-10 11:33] VITALS: RESP 16
--- NOTE | 2018-04-10 11:33 | P.PN ---
Subjective Progress Note Date: 04/10/18 Toby is a 67-year-old white male well-known to me. He is status post low anterior resection and repair of incarcerated ventral hernia amount of partial omentectomy for ongoing diverticulitis. Feeling well this morning. He has a little anesthetic still in place. His pain is shoulder this time. He denies any chest pains, pressures, or shortness of breath. He denies any nausea or vomiting recently. He is been nothing by mouth till this morning. He has been advanced to clear liquid diet. His sugars and blood pressure remained controlled. 04/09/2018: Toby is pain is controlled with an epidural. He has some itching with this. He denies any nausea or vomiting. He indicates he is passing flatus. He has full liquid diet currently. He denies any chest pains, pressures or shortness of breath. Above notes per Dr. Andino 04/10/2018 Patient seen and examined at the bedside. Patient is s/p low anterior resection , partial omentectomy, and repair of incarcerated ventral hernia. The patient is sitting up in the chair. His epidural was discontinued this morning. The patient states his pain is tolerable. Patient states he is passing flatus and also reports having bowel movements. He denies shortness of breath. Indwelling urinary catheter remains intact with yellow urine. Vital signs have been stable. Patient reports that he would like to go to subacute rehab at the time of discharge however patient appears to be doing very well. Consults to OT and PT were placed today by nursing for evaluation. Objective - Vital Signs Vital signs: Vital Signs Temp 97.9 F 04/09/18 15:00 Pulse 78 04/09/18 20:05 Resp 18 04/10/18 00:00 BP 146/74 04/09/18 15:00 Pulse Ox 95 04/09/18 15:00 Intake & Output 04/09/18 04/10/18 04/10/18 18:59 06:59 18:59 Intake Total 2310 2422 240 Balance 2310 2422 240 Intake: Intake, IV Titration 2009 1032 Amount D5-0.45% NaCl with KCl 2000 1000 20Meq/l 1,000 ml @ 125 mls/hr IV .Q8H [facility] Rx#: [id number] Ropivacaine 250 mg 10 32 Hydromorphone (Pf) 5 mg In Sodium Chloride 0.9% 200 ml @ Per Protocol EPIDURAL .Q0M PRN Rx#: [id number] Oral 300 1390 240 Other: Voiding Method Indwelling Catheter - Exam GENERAL: This is a 67-year-old male in no apparent distress at the time of examination. Pleasant and cooperative. HEENT: Head is atraumatic, normocephalic. Sclerae anicteric. Conjunctivae are clear. Mucus membranes of the mouth are moist. Neck is supple. RESPIRATORY: Clear to auscultation. No wheezes, rales, or rhonchi. No use of accessory muscles. Patient maintaining oxygen saturation greater than 92% CARDIOVASCULAR: Regular rate and rhythm. S1 and S2 noted. No systolic or diastolic murmur auscultated. No JVD noted. No S3 or S4 noted. GASTROINTESTINAL: Obese. Abdomen soft and round. Hypoactive bowel sounds auscultated x 4 quadrants. Midline surgical dressing with old bloody drainage present. INTEGUMENTARY: No cyanosis. No jaundice. No rashes noted. No cellulitis noted. EXTREMITIES: No evidence of peripheral edema. No calf tenderness noted. NEUROLOGIC: Cranial nerves II-XII grossly intact. PSYCHIATRIC: Awake, alert, and oriented X 3. Appropriate affect. Intact judgement and insight. - Labs CBC & Chem 7: 04/09/18 07:57 04/09/18 07:57 Labs: Abnormal Lab Results - Last 24 Hours (Table) 04/09/18 04/09/18 04/09/18 Range/Units 11:54 17:01 20:12 POC Glucose (mg/dL) 135 H 123 H 151 H (75-99) mg/dL 04/10/18 Range/Units 07:01 POC Glucose (mg/dL) 146 H (75-99) mg/dL Assessment and Plan Plan: ASSESSMENT: History of diverticulitis, status post low anterior resection, partial omentectomy, and repair of incarcerated ventral hernia Diabetes mellitus, type II Hypertension History of MRSA right knee, January 2017 History of nicotine dependence, in remission PLAN: Continue postoperative surgical care per Dr. Cohen Advance diet per surgery Discontinue indwelling urinary catheter Discontinue IV fluids Incentive spirometer 10 times hour while awake Pain control Activity as tolerated. Encourage ambulation Home meds as appropriate Monitor labs GI prophylaxis: Protonix 40 mg PO Daily DVT prophylaxis: SCDs to bilateral lower extremities Monitor vital signs and address as appropriate Discharge planning: Patient requesting subacute rehab. Consults placed to PT/ OT. Patient is doing very well and do not suspect that patient will require subacute rehab at the time of discharge. Further recommendations pending patient's course Nurse practitioner note has been reviewed by physician. Signing provider agrees with the documented findings, assessment, and plan of care.
[2018-04-10] MEDS: FAMOTIDINE 20 MG/2 ML VIAL IV SCH (11:43)
[2018-04-10] MEDS: LACTATED RINGERS 1,000 ML IV SCH (11:44)
--- NOTE | 2018-04-10 12:54 | P.PN ---
Subjective Progress Note Date: 04/10/18 67 -year-old male seen this morning on rounds. Patient has been up ambulating in the room. Patient states he did have 2 small bowel movements this morning passing gas. Surgical dressing dry abdomen soft surgical tenderness appropriate nondistended no nausea no vomiting reported no labs pending Postop April 07 repair incarcerated ventral hernia, low anterior section, partial omentectomy for diverticulitis Objective - Vital Signs Vital signs: Vital Signs Temp 98.3 F 04/10/18 08:46 Pulse 81 04/10/18 08:46 Resp 16 04/10/18 08:46 BP 148/67 04/10/18 08:46 Pulse Ox 97 04/10/18 08:46 Intake & Output 04/09/18 04/10/18 04/10/18 18:59 06:59 18:59 Intake Total 2310 2422 240 Output Total 300 Balance 2310 2422 -60 Intake: Intake, IV Titration 2009 1032 Amount D5-0.45% NaCl with KCl 2000 1000 20Meq/l 1,000 ml @ 125 mls/hr IV .Q8H [facility] Rx#: [id number] Ropivacaine 250 mg 10 32 Hydromorphone (Pf) 5 mg In Sodium Chloride 0.9% 200 ml @ Per Protocol EPIDURAL .Q0M PRN Rx#: [id number] Oral 300 1390 240 Output: Urine 300 Uretheral (Johansen) 300 Other: Voiding Method Indwelling Catheter Indwelling Catheter - Exam GENERAL APPEARANCE: 67-year-old male sitting up in a chair alert, in no acute distress. VITAL SIGNS: Reviewed HEENT: Head is normocephalic and atraumatic. Pupils are equal and reactive. The nares are patent. Oropharynx is clear without lesions. NECK: Supple without lymphadenopathy. Traches midline. HEART: S1, S2. Regular rate and rhythm. No murmur noted LUNGS: No crackles or wheezes are heard. Adequate air movement ABDOMEN: Surgical tenderness appropriate surgical dressing site dry indwelling Johansen catheter currently in place reports having 2 small bowel movements this morning passing gas no nausea no vomiting tolerating a full liquid diet EXTREMITIES: Normal skin color and turgor. No cyanosis, rash, ulceration, clubbing or edema. Radial pedal pulses are 2/4 bilaterally. NEUROLOGICAL: No focal deficits. Strength and sensation are grossly intact. - Labs CBC & Chem 7: 04/09/18 07:57 04/09/18 07:57 Labs: Abnormal Lab Results - Last 24 Hours (Table) 04/09/18 04/09/18 04/10/18 Range/Units 17:01 20:12 07:01 POC Glucose (mg/dL) 123 H 151 H 146 H (75-99) mg/dL 04/10/18 Range/Units 11:12 POC Glucose (mg/dL) 117 H (75-99) mg/dL Assessment and Plan Assessment: Impression History of diverticulitis Postop April 07 low anterior resection, repair of incarcerated ventral hernia , partial omentectomy done for diverticulitis Nicotine dependency in remission Type 2 diabetes Plan Continue postop surgical care PT OT eval patient is requesting subacute rehab Pain control Continue full liquid diet advance as tolerated Encourage the use of the incentive spirometer Increase activity DVT and GI prophylaxis The above impression and plan of care have been discussed and directed by signing physician. Diane Mosquera nurse practitioner acting as scribe for signing physician.
[2018-04-10 16:44] LABS: Glucose,Whole Blood 122 mg/dL (75-99)
[2018-04-10 20:28] LABS: Glucose,Whole Blood 135 mg/dL (75-99)
[2018-04-10] MEDS: HYDROcodone/APAP 5-325MG 1 EACH TAB PO PRN (20:39)
[2018-04-11] MEDS: LACTATED RINGERS 1,000 ML IV SCH (04:47)
[2018-04-11 07:15] LABS: Glucose,Whole Blood 118 mg/dL (75-99)
[2018-04-11 08:48] VITALS: BP 160/85; PULSE 85; TEMP 97.6
[2018-04-11] MEDS: PANTOPRAZOLE 40 MG TABLET PO SCH (08:48)
[2018-04-11] MEDS: ALVIMOPAN 12 MG CAPSULE PO SCH (08:48)
[2018-04-11] MEDS: ALLOPURINOL 300 MG TAB PO SCH (08:49)
[2018-04-11] MEDS: LISINOPRIL 20 MG TAB PO SCH (08:49)
[2018-04-11] MEDS: HYDROcodone/APAP 5-325MG 1 EACH TAB PO PRN ×2 (08:49→14:35)
[2018-04-11] MEDS: HEPARIN SODIUM,PORCINE 5,000 UNIT/ML 1 ML VIAL SQ SCH (08:49)
[2018-04-11] MEDS: metFORMIN 500 MG TAB PO SCH (08:49)
[2018-04-11] MEDS: ESCITALOPRAM 10 MG TAB PO SCH (08:51)
[2018-04-11] MEDS: INSULIN ASPART 100 UNIT/ML 1 ML 10 ML VIAL SQ SCH ×2 (09:42→14:37)
[2018-04-11] MEDS: D5-0.45% NACL WITH KCL 20MEQ/L 1,000 ML IV SCH (09:42)
[2018-04-11] MEDS ORDERED: ACETAMINOPHEN TAB 325 MG TAB PO STA ×2 (09:57→14:25)
--- NOTE | 2018-04-11 10:49 | P.PN ---
Subjective Progress Note Date: 04/11/18 Toby is a 67-year-old white male well-known to me. He is status post low anterior resection and repair of incarcerated ventral hernia amount of partial omentectomy for ongoing diverticulitis. Feeling well this morning. He has a little anesthetic still in place. His pain is shoulder this time. He denies any chest pains, pressures, or shortness of breath. He denies any nausea or vomiting recently. He is been nothing by mouth till this morning. He has been advanced to clear liquid diet. His sugars and blood pressure remained controlled. 04/09/2018: Toby is pain is controlled with an epidural. He has some itching with this. He denies any nausea or vomiting. He indicates he is passing flatus. He has full liquid diet currently. He denies any chest pains, pressures or shortness of breath. Above notes per Dr. Andino 04/10/2018 Patient seen and examined at the bedside. Patient is s/p low anterior resection , partial omentectomy, and repair of incarcerated ventral hernia. The patient is sitting up in the chair. His epidural was discontinued this morning. The patient states his pain is tolerable. Patient states he is passing flatus and also reports having bowel movements. He denies shortness of breath. Indwelling urinary catheter remains intact with yellow urine. Vital signs have been stable. Patient reports that he would like to go to subacute rehab at the time of discharge however patient appears to be doing very well. Consults to OT and PT were placed today by nursing for evaluation. 04/11/2018 Patient seen and examined at the bedside. Patient is currently sitting up in the chair. Patient states he continues to pass flatus. Denies bowel movement this morning however he had a few bowel movements yesterday. Indwelling urinary catheter was removed yesterday. Patient has been voiding well without difficulty. He denies shortness of breath or chest pain. Patient reports he has been up ambulating in the hallway with minimal assistance. It is unlikely that the patient will qualify for subacute rehab. Discussed with patient going home with home care at time of discharge. Patient is agreeable.. Objective - Vital Signs Vital signs: Vital Signs Temp 97.6 F 04/11/18 08:48 Pulse 85 04/11/18 08:48 Resp 16 04/11/18 08:48 BP 160/85 04/11/18 08:48 Pulse Ox 97 04/11/18 08:48 Intake & Output 04/10/18 04/11/18 04/11/18 18:59 06:59 18:59 Intake Total 955 Output Total 2400 Balance -1445 Intake: Oral 955 Output: Urine 2400 Uretheral (Johansen) 300 Other: Voiding Method Indwelling Catheter # Voids 1 1 - Exam GENERAL: This is a 67-year-old male in no apparent distress at the time of examination. Pleasant and cooperative. HEENT: Head is atraumatic, normocephalic. Sclerae anicteric. Conjunctivae are clear. Mucus membranes of the mouth are moist. Neck is supple. RESPIRATORY: Clear to auscultation. No wheezes, rales, or rhonchi. No use of accessory muscles. Patient maintaining oxygen saturation greater than 92% CARDIOVASCULAR: Regular rate and rhythm. S1 and S2 noted. No systolic or diastolic murmur auscultated. No JVD noted. No S3 or S4 noted. GASTROINTESTINAL: Obese. Abdomen soft and round. Hypoactive bowel sounds auscultated x 4 quadrants. Midline surgical dressing with old bloody drainage present. INTEGUMENTARY: No cyanosis. No jaundice. No rashes noted. No cellulitis noted. EXTREMITIES: No evidence of peripheral edema. No calf tenderness noted. NEUROLOGIC: Cranial nerves II-XII grossly intact. PSYCHIATRIC: Awake, alert, and oriented X 3. Appropriate affect. Intact judgement and insight. - Labs CBC & Chem 7: 04/09/18 07:57 04/09/18 07:57 Labs: Abnormal Lab Results - Last 24 Hours (Table) 04/10/18 04/10/18 04/10/18 Range/Units 11:12 16:42 20:26 POC Glucose (mg/dL) 117 H 122 H 135 H (75-99) mg/dL 04/11/18 Range/Units 07:12 POC Glucose (mg/dL) 118 H (75-99) mg/dL Assessment and Plan Plan: ASSESSMENT: History of diverticulitis, status post low anterior resection, partial omentectomy, and repair of incarcerated ventral hernia Diabetes mellitus, type II Hypertension History of MRSA right knee, January 2017 History of nicotine dependence, in remission PLAN: Continue postoperative surgical care per Dr. Cohen Advance diet per surgery Incentive spirometer 10 times hour while awake Pain control Activity as tolerated. Encourage ambulation Home meds as appropriate Monitor labs GI prophylaxis: Protonix 40 mg PO Daily DVT prophylaxis: SCDs to bilateral lower extremities Monitor vital signs and address as appropriate Discharge planning: Patient originally requesting subacute rehab. Patient is doing very well and do not suspect that patient will require subacute rehab at the time of discharge. Patient agreeable to home with home care at the time of discharge. Further recommendations pending patient's course Patient is cleared for discharge from medical standpoint when appropriate with Dr. Cohen. Patient can follow up with Dr. Longoria/Sina in 2 weeks. Nurse practitioner note has been reviewed by physician. Signing provider agrees with the documented findings, assessment, and plan of care.
--- NOTE | 2018-04-11 11:32 | P.DS ---
Providers Date of admission: 04/07/18 08:41 Expected date of discharge: 04/11/18 Attending physician: Danielito Cohen Consults: 04/07/18 15:06 Consult Physician Routine Consulting Provider: Harvinder Andino Consult Reason/Comments: med manage Do you want consulting provider notified?: Yes Primary care physician: Harvinder Sina Hospital Course: 67-year-old male who has a history of chronic diverticulitis. Was admitted on the day of admission to undergo a low anterior resection with a sigmoid colectomy for diverticulitis. Patient tolerated the procedure well known were no postop events the day of discharge patient was up ambulatory on the unit home care was set up by the rn case manager hospice. Patient states he is not interested in going to rehab at this time he feels home care would be appropriate. Patient lives with a spouse. Impression History of diverticulitis Postop April 07 low anterior resection, repair of incarcerated ventral hernia , partial omentectomy done for diverticulitis Nicotine dependency in remission Type 2 diabetes The above impression and plan of care have been discussed and directed by signing physician. Diane Mosquera nurse practitioner acting as scribe for signing physician. Plan - Discharge Summary Discharge Rx Participant: Yes New Discharge Prescriptions: New HYDROcodone/APAP 5-325MG [[place] 5-325] 1 each PO Q4HR PRN #12 tab PRN Reason: Pain Continue metFORMIN HCL 1,000 mg PO DAILY Ramipril [Altace] 5 mg PO QAM Allopurinol [Zyloprim] 300 mg PO DAILY Omeprazole 20 mg PO QAM Escitalopram [Lexapro] 10 mg PO QAM Discharge Medication List Allopurinol [Zyloprim] 300 mg PO DAILY 03/27/18 [History] Omeprazole 20 mg PO QAM 03/27/18 [History] Ramipril [Altace] 5 mg PO QAM 03/27/18 [History] metFORMIN HCL 1,000 mg PO DAILY 03/27/18 [History] Escitalopram [Lexapro] 10 mg PO QAM 04/05/18 [History] HYDROcodone/APAP 5-325MG [[place] 5-325] 1 each PO Q4HR PRN #12 tab 04/11/18 [Rx] Follow up Appointment(s)/Referral(s): Harvinder Andino MD [Primary Care Provider] - 2 Weeks Danielito Cohen MD [STAFF PHYSICIAN] - 1 Week Activity/Diet/Wound Care/Special Instructions: No tub bath for six weeks. Shower daily. No soaking No lifting over 10 pounds for the next 2 weeks. Full liquid diet advance as tolerated May use ice packs to surgical site. No driving while taking narcotic for pain. Discharge Disposition: HOME WITH HOME HEALTH SERVICES
== END 2018-04-11 14:45 | disposition home health service (06) | DRG 330 ==
LOC: 2ORMAIN 08:41 → 4SSUR 15:00
PROVIDERS: ADMIT Surgery; ATTEND Surgery
PROC: 0DBU0ZZ Excision of Omentum, Open Approach (ICD-10-PCS; principal; 2018-04-07 10:30)
PROC: 0DBN0ZZ Excision of Sigmoid Colon, Open Approach (ICD-10-PCS; principal; 2018-04-07 10:30)
DX: K57.32 Diverticulitis of large intestine without perforation or abscess without bleeding (principal); F32.1 Major depressive disorder, single episode, moderate; K43.6 Other and unspecified ventral hernia with obstruction, without gangrene; E11.9 Type 2 diabetes mellitus without complications; F17.201 Nicotine dependence, unspecified, in remission; I10 Essential (primary) hypertension; L29.9 Pruritus, unspecified; M10.9 Gout, unspecified; Z86.14 Personal history of Methicillin resistant Staphylococcus aureus infection; Z96.659 Presence of unspecified artificial knee joint; Z79.84 Long term (current) use of oral hypoglycemic drugs; Z79.899 Other long term (current) drug therapy
CPT/HCPCS: 36415; 80048; 80051; 83036; 85025; 85027; 86850; 86900; 86901; 88305; 88307; 93005

== ENCOUNTER 2018-04-12 20:52 | Emergency (ER) | payer MEDICARE ==
--- NOTE | 2018-04-12 21:52 | ED ---
Abdominal Pain HPI - General Chief Complaint: Abdominal Pain Stated Complaint: Constipated Time Seen by Provider: 04/12/18 21:15 Source: patient Mode of arrival: ambulatory Limitations: no limitations - History of Present Illness Initial Comments: This patient is a 67-year-old man who presents to be evaluated for abdominal pain. The patient states that the pains have been coming on since about noon. He describes it as being somewhat diffuse throughout the abdomen, moving around. The pain is colicky. He states it is currently about a 3 out of 10 intensity. He has not noted anything that makes it get better or worse. He has a feeling of constipation as if he has to have bowel movement and has not had one since about 2 in the afternoon yesterday. He has had some nausea as well. Patient on Tuesday had a bowel resection for diverticulosis. Performed here by . He denies any systemic symptoms, including no fever or chills, chest pain, dyspnea, palpitations, diaphoresis or other symptoms. MD Complaint: abdominal pain Onset/Timin -: hour(s) Location: diffuse Radiation: none Severity: mild Severity scale (1-10): 3 Quality: cramping, fullness Consistency: colicky Improves With: nothing Worsens With: nothing Context: recent surgery/procedure Associated Symptoms: nausea - Related Data Home Medications Medication Instructions Recorded Confirmed Allopurinol [Zyloprim] 300 mg PO DAILY 03/27/18 04/12/18 Omeprazole 20 mg PO QAM 03/27/18 04/12/18 Ramipril [Altace] 5 mg PO QAM 03/27/18 04/12/18 metFORMIN HCL 1,000 mg PO DAILY 03/27/18 04/12/18 Escitalopram [Lexapro] 10 mg PO QAM 04/05/18 04/12/18 HYDROcodone/APAP 5-325MG [[place] 1 tab PO Q4HR PRN 04/12/18 04/12/18 5-325] Allergies Allergy/AdvReac Type Severity Reaction Status Date / Time No Known Allergies Allergy Verified 04/12/18 21:26 Review of Systems ROS Statement: Those systems with pertinent positive or pertinent negative responses have been documented in the HPI. ROS Other: All systems not noted in ROS Statement are negative. Constitutional: Denies: fever, chills Respiratory: Denies: cough, dyspnea Cardiovascular: Denies: chest pain, palpitations, edema Gastrointestinal: Reports: abdominal pain, nausea, constipation. Denies: vomiting, diarrhea, melena, hematochezia Genitourinary: Denies: dysuria, frequency, hematuria, testicular pain Musculoskeletal: Denies: back pain Skin: Denies: rash Neurological: Denies: headache, weakness, numbness Past Medical History Past Medical History: Diabetes Mellitus, Hypertension Additional Past Medical History / Comment(s): diverticulitis-narrowing bowel, Goutt, MRSA right knee January 2017 History of Any Multi-Drug Resistant Organisms: None Reported Past Surgical History: Appendectomy, Joint Replacement, Orthopedic Surgery, Tonsillectomy Additional Past Surgical History / Comment(s): Shoulder Arthroscopy; Colonoscopy , bowel sx. Past Anesthesia/Blood Transfusion Reactions: No Reported Reaction Additional Past Anesthesia/Blood Transfusion Reaction / Comment(s): no hx blood transfusion Past Psychological History: No Psychological Hx Reported Smoking Status: Former smoker Past Alcohol Use History: Occasional Past Drug Use History: None Reported - Past Family History Mother Family Medical History: No Reported History General Exam Limitations: no limitations General appearance: alert, in no apparent distress Head exam: Present: atraumatic, normocephalic Eye exam: Present: normal appearance. Absent: scleral icterus, conjunctival injection ENT exam: Present: normal oropharynx Neck exam: Present: normal inspection Respiratory exam: Present: normal lung sounds bilaterally. Absent: respiratory distress, wheezes, rales, rhonchi, stridor Cardiovascular Exam: Present: regular rate, normal rhythm, normal heart sounds. Absent: systolic murmur, diastolic murmur, rubs, gallop GI/Abdominal exam: Present: soft, distended, hyperactive bowel sounds, other ( Surgical incision is clean dry and intact. No erythema.). Absent: tenderness, guarding, rebound, rigid, organomegaly, mass, pulsatile mass, hernia Extremities exam: Present: normal inspection, normal capillary refill. Absent: pedal edema, calf tenderness Back exam: Present: normal inspection. Absent: CVA tenderness (R), CVA tenderness (L) Skin exam: Present: warm, dry, intact, normal color. Absent: rash Course Vital Signs 04/12/18 21:07 Temperature 98.3 F Pulse Rate 85 Respiratory 20 Rate Blood Pressure 137/79 O2 Sat by Pulse 97 Oximetry Medical Decision Making - Medical Decision Making Patient is 67-year-old man with some abdominal discomfort that he states very much like constipation. The patient's workup essentially benign. He did have a bowel movement here and states that his symptoms have improved. I did discuss the results of the exam and his studies with Dr. Cohen. He will follow-up in the clinic. We discussed appropriate further care as well as return parameters. - Lab Data Result diagrams: 04/12/18 23:39 04/12/18 23:39 Lab Results 04/12/18 04/12/18 04/12/18 Range/Units 23:39 23:39 23:39 WBC 7.8 (3.8-10.6) k/uL RBC 4.71 (4.30-5.90) m/uL Hgb 14.3 (13.0-17.5) gm/dL Hct 40.8 (39.0-53.0) % MCV 86.7 (80.0-100.0) fL MCH 30.4 (25.0-35.0) pg MCHC 35.1 (31.0-37.0) g/dL RDW 13.7 (11.5-15.5) % Plt Count 219 (150-450) k/uL Neutrophils % 62 % Lymphocytes % 22 % Monocytes % 8 % Eosinophils % 5 % Basophils % 0 % Neutrophils # 4.8 (1.3-7.7) k/uL Lymphocytes # 1.7 (1.0-4.8) k/uL Monocytes # 0.6 (0-1.0) k/uL Eosinophils # 0.4 (0-0.7) k/uL Basophils # 0.0 (0-0.2) k/uL Sodium 136 L (137-145) mmol/L Potassium 4.8 (3.5-5.1) mmol/L Chloride 103 (98-107) mmol/L Carbon Dioxide 24 (22-30) mmol/L Anion Gap 9 mmol/L BUN 18 (9-20) mg/dL Creatinine 0.83 (0.66-1.25) mg/dL Est GFR (CKD-EPI)AfAm >90 (>60 ml/min/1.73 sqM) Est GFR (CKD-EPI)NonAf >90 (>60 ml/min/1.73 sqM) Glucose 118 H (74-99) mg/dL Plasma Lactic Acid Barber 1.1 (0.7-2.0) mmol/L Calcium 9.5 (8.4-10.2) mg/dL Total Bilirubin 1.2 (0.2-1.3) mg/dL AST 42 (17-59) U/L ALT 59 (21-72) U/L Alkaline Phosphatase 77 (38-126) U/L Total Protein 6.7 (6.3-8.2) g/dL Albumin 3.7 (3.5-5.0) g/dL Disposition Clinical Impression: Abdominal pain Disposition: HOME SELF-CARE Condition: Good Instructions: Abdominal Pain (ED) Is patient prescribed a controlled substance at d/c from ED?: No Referrals: Harvinder Andino MD [Primary Care Provider] - 1-2 days Danielito Cohen MD [STAFF PHYSICIAN] - 1-2 days
--- NOTE | 2018-04-12 22:06 | XR ---
EXAMINATION TYPE: XR abdomen acute w cxr DATE OF EXAM: 04/12/2018 COMPARISON: NONE HISTORY: TECHNIQUE: Chest x-ray with supine and upright abdomen FINDINGS: Heart and mediastinum are normal. Lungs are clear. Bowel gas pattern is normal. There is no sign of intestinal obstruction or pneumoperitoneum. There ar e skin virgilio in the lower abdomen. There is left hip prosthesis. There are no pathologic calcificat ions over the kidneys. There is no evidence of a mass. IMPRESSION: No active cardiopulmonary disease. Nonacute abdomen.
[2018-04-12] MEDS ORDERED: SODIUM CHLORIDE 0.9% 1,000 ML IV ONE (23:18)
[2018-04-12] MEDS ORDERED: DICYCLOMINE 20 MG TAB PO STA (23:19)
[2018-04-12 23:54] LABS: Basophils % (A) 0 %; Eosinophils # (A) 0.4 k/uL (0-0.7); Eosinophils % (A) 5 %; HCT 40.8 % (39.0-53.0); HGB 14.3 gm/dL (13.0-17.5); Lymphocytes # (A) 1.7 k/uL (1.0-4.8); Lymphocytes % (A) 22 %; MCH 30.4 pg (25.0-35.0); MCHC 35.1 g/dL (31.0-37.0); MCV 86.7 fL (80.0-100.0); Mean Platelet Volume 6.3; Monocytes # (A) 0.6 k/uL (0-1.0); Monocytes % (A) 8 %; Neutrophils # (A) 4.8 k/uL (1.3-7.7); Neutrophils % (A) 62 %; Platelet Count 219 k/uL (150-450); RBC 4.71 m/uL (4.30-5.90); RDW 13.7 % (11.5-15.5); WBC 7.8 k/uL (3.8-10.6)
[2018-04-13 00:07] LABS: ALT 59 U/L (21-72); AST 42 U/L (17-59); Albumin 3.7 g/dL (3.5-5.0); Alkaline Phosphatase 77 U/L (38-126); Anion Gap 9 mmol/L; Blood Urea Nitrogen 18 mg/dL (9-20); Calcium 9.5 mg/dL (8.4-10.2); Carbon Dioxide 24 mmol/L (22-30); Chloride 103 mmol/L (98-107); Glucose 118 mg/dL (74-99); Potassium 4.8 mmol/L (3.5-5.1); Sodium 136 mmol/L (137-145); Total Bilirubin 1.2 mg/dL (0.2-1.3); Total Protein 6.7 g/dL (6.3-8.2)
[2018-04-13 00:52] VITALS: BP 153/82; PULSE 79; RESP 16; TEMP 97.9
== END 2018-04-13 00:53 | disposition home or self-care (01) ==
LOC: EC 20:52
DX: R10.84 Generalized abdominal pain (principal); R11.0 Nausea; E11.9 Type 2 diabetes mellitus without complications; I10 Essential (primary) hypertension; M10.9 Gout, unspecified; Z86.14 Personal history of Methicillin resistant Staphylococcus aureus infection; Z87.19 Personal history of other diseases of the digestive system; Z87.891 Personal history of nicotine dependence; Z79.84 Long term (current) use of oral hypoglycemic drugs; Z79.899 Other long term (current) drug therapy; Z90.49 Acquired absence of other specified parts of digestive tract; Z98.890 Other specified postprocedural states
CPT/HCPCS: 36415; 74022; 80053; 83605; 85025; 96360; 99284

== ENCOUNTER → 2018-12-22 | Outpatient (CLI) | payer MEDICARE ==
--- NOTE | 2018-12-22 10:57 | CTL ---
EXAMINATION TYPE: CT Low Dose Lung DATE OF EXAM ORDERED: 12/22/2018 COMPARISON: HISTORY: . Low Dose CT Lung Screening CT DLP: [address] CTDI: 2.56 mGy IV CONTRAST USED: None. SCREENING VISIT: First visit COMPARISON: None. TECHNIQUE: Low dose computed tomography scan was performed through the chest at 1 millimeter thick se ctions and reconstructed images in the coronal plane at [address] DIAGNOSTIC QUALITY: Satisfactory FINDINGS: LUNG NODULES: Not presentLeft lung: no nodules identified.Right lung: no nodules identified. LUNGS: COPD: Severity: Mild upper lobe emphysematous changes noted. Fibrosis: Severity:None Lymph nodes: 9 mm AP window lymph node. Calcified mediastinal and hilar lymph nodes noted. Other findings: None RIGHT PLEURAL SPACE: Effusion: None Calcification: None Thickening: None Pneumothorax: None LEFT PLEURAL SPACE: Effusion: None Calcification: None Thickening: None Pneumothorax: None HEART: Heart Size: Mildly enlarged Coronary calcification: Mild Pericardial effusion: None OTHER FINDINGS: Upper abdomen: No significant abnormality Bony thorax: Degenerative changes Supraclavicular region: No significant abnormalityOther: No significant abnormalityI IMPRESSION: 1. No distinct nodularity seen. 2. Mild emphysematous change and calcified mediastinal and hilar lymph nodes. FOLLOW UP CT CHEST RECOMMENDATION: Follow-up screening in one year . Smoking cessation recommended. CT LUNG RAD: Negative category 1
== END | disposition home or self-care (01) ==
LOC: RADCTMAIN 10:10
PROVIDERS: ATTEND Family Medicine
DX: Z12.2 Encounter for screening for malignant neoplasm of respiratory organs (principal); J43.9 Emphysema, unspecified; Z87.891 Personal history of nicotine dependence

== ENCOUNTER → 2018-12-27 | Outpatient (CLI) | payer MEDICARE ==
[2018-12-27 15:22] LABS: Basophils % (A) 1 %; Eosinophils # (A) 0.2 k/uL (0-0.7); Eosinophils % (A) 3 %; HCT 43.7 % (39.0-53.0); HGB 14.5 gm/dL (13.0-17.5); Lymphocytes # (A) 1.5 k/uL (1.0-4.8); Lymphocytes % (A) 19 %; MCH 28.8 pg (25.0-35.0); MCHC 33.2 g/dL (31.0-37.0); MCV 86.6 fL (80.0-100.0); Mean Platelet Volume 6.6; Monocytes # (A) 0.6 k/uL (0-1.0); Monocytes % (A) 7 %; Neutrophils # (A) 5.2 k/uL (1.3-7.7); Neutrophils % (A) 67 %; Platelet Count 236 k/uL (150-450); RBC 5.05 m/uL (4.30-5.90); WBC 7.8 k/uL (3.8-10.6)
[2018-12-27 15:23] LABS: Appearance,Urine Clear (Clear); Bilirubin,Urine Negative (Negative); Blood,Urine Negative (Negative); Color,Urine Yellow; Glucose,Urine (UA) Negative (Negative); Ketones,Urine Negative (Negative); Leukocyte Esterase,Urine Negative (Negative); Nitrite,Urine Negative (Negative); PH, Urine 5.5 (5.0-8.0); Protein,Urine Negative (Negative); Specific Gravity,Urine 1.023 (1.001-1.035); Urobilinogen,Urine <2.0 mg/dL (<2.0)
[2018-12-27 15:29] LABS: INR 0.9 (<1.2); Prothrombin Time 9.7 sec (9.0-12.0)
[2018-12-28 06:01] LABS: African American GFR (CKD) 89.9 (60.0-200.0); Albumin 4.4 g/dL (3.80-4.90); Anion Gap 10.3 mmol/L (4.00-12.00); Calcium 9.2 mg/dL (8.7-10.3); Carbon Dioxide 23.7 mmol/L (21.6-31.8); Globulin 2.2 g/dL (1.6-3.3); Potassium 4.7 mmol/L (3.5-5.5); Total Bilirubin 1.1 mg/dL (0.3-1.2); Total Protein 6.6 g/dL (6.2-8.2)
== END | disposition home or self-care (01) ==
LOC: LABWHC1 14:26
PROVIDERS: ATTEND Neurological Surgery
DX: M43.16 Spondylolisthesis, lumbar region (principal)
CPT/HCPCS: 36415; 80053; 81003; 85025; 85610; 85730; 87070; 87086; 93005

== ENCOUNTER → 2018-12-27 | Outpatient (CLI) | payer MEDICARE ==
--- NOTE | 2018-12-27 15:38 | XR ---
EXAMINATION TYPE: XR chest 2V DATE OF EXAM: 12/27/2018 COMPARISON: Lung CT from 5 days ago. HISTORY: Presurgical study lumbar spine. TECHNIQUE: Frontal and lateral views of the chest are obtained. FINDINGS: There is no focal air space opacity, pleural effusion, or pneumothorax seen. The cardiac silhouette size is within normal limits. The osseous structures are intact. IMPRESSION: No acute cardiopulmonary process.
== END | disposition home or self-care (01) ==
LOC: RADXRMAIN 14:45
PROVIDERS: ATTEND Neurological Surgery
DX: M43.16 Spondylolisthesis, lumbar region (principal)
CPT/HCPCS: 71046

== ENCOUNTER → 2020-02-27 | Outpatient (CLI) | payer MEDICARE ==
--- NOTE | 2020-02-27 08:37 | CT ---
EXAMINATION TYPE: CT thor lumbar spine wo con DATE OF EXAM: 02/27/2020 COMPARISON: None HISTORY: Back pain. CT DLP: 2276 mGycm Automated exposure control for dose reduction was used. FINDINGS: There is multilevel degenerative disc disease with most marked findings seen involving the thoracolum bar junction and mid and upper lumbar spine. Grade 1 anterolisthesis L4 on L5. There is multilevel facet arthropathy and foraminal encroachment most marked involving levels L2-S1. Postsurgical changes are noted at level L3-4 with approximately 2 mm retrolisthesis of L3 relative to L4. Multilevel facet arthropathy. At L2-L3 there is hypertrophic spurring. Broad-based disc bulging and effacement of thecal sac greate r paracentrally to the left. Bilateral foraminal encroachment. Could not exclude canal stenosis. And L3-L4 there is postsurgical changes resulting in artifact. Facet arthropathy and hypertrophic suleiman nges result in a degree of constriction of the thecal sac and bilateral foraminal encroachment. Canal stenosis not excluded. MRI recommended. At L4-L5 there is broad-based disc bulging with effacement of thecal sac and facet arthropathy result in bilateral foraminal encroachment. Canal stenosis suspected. At L5-S1 there is diffuse disc bulging and effacement of thecal sac. Bilateral foraminal encroachment . Multilevel mild degenerative disc disease throughout the thoracic spine. No obvious areas of canal st enosis. Motion artifact limits the exam. Subpleural nodularity is seen in both lungs. Diffuse emphyse matous changes are noted. Right lower lobe lobe posterior 5 mm pulmonary nodules seen. Hypodense lesi on involving the mid pole left kidney is indeterminate by noncontrast technique. IMPRESSION: Exam limited by motion artifact 1. Multilevel mild degenerative disc disease of the thoracic spine #. 2. Moderate to severe multilevel degenerative disc disease involving the lumbar spine with postsurgic al changes at L3-L4. Multilevel foraminal encroachment and disc bulging with possible canal stenosis recommend MRI. 3. Grade 1 anterolisthesis of L3 on L4 appears to generative 4. Sagittal view demonstrates deformity of the sternum which could been the basis of previous trauma. There is severe motion which could also account for the finding. However, there are multiple pulmona ry nodules and CT of the chest is recommended.
== END | disposition home or self-care (01) ==
LOC: RADCTMAIN 07:50
PROVIDERS: ATTEND Family Medicine
DX: M48.061 Spinal stenosis, lumbar region without neurogenic claudication (principal); M43.16 Spondylolisthesis, lumbar region; M51.34 Other intervertebral disc degeneration, thoracic region; M51.36 Other intervertebral disc degeneration, lumbar region; Z98.890 Other specified postprocedural states
CPT/HCPCS: 72128; 72131

== ENCOUNTER 2021-11-14 06:09 | Emergency (ER) | payer MEDICARE ==
[2021-11-14 06:16] VITALS: TEMP 97.8
[2021-11-14 07:03] LABS: Appearance,Urine Clear (Clear); Bilirubin,Urine Negative (Negative); Blood,Urine Negative (Negative); Color,Urine Yellow; Glucose,Urine (UA) Negative (Negative); Ketones,Urine Negative (Negative); Leukocyte Esterase,Urine Negative (Negative); Mucus,Urine Moderate /hpf; Nitrite,Urine Negative (Negative); PH, Urine 6.5 (5.0-8.0); Protein,Urine 1+ (Negative); RBC,Urine 3 /hpf (0-5); Specific Gravity,Urine 1.018 (1.001-1.035); Squamous Epithelial Cell,Urine <1 /hpf (0-4); Urobilinogen,Urine <2.0 mg/dL (<2.0); WBC,Urine 2 /hpf (0-5)
--- NOTE | 2021-11-14 07:13 | ED ---
General Adult HPI - General Chief complaint: Urogenital Stated complaint: Urogenital Time Seen by Provider: 11/14/21 06:28 Source: patient, RN notes reviewed Mode of arrival: ambulatory Limitations: no limitations - History of Present Illness Initial comments: 71-year-old male presents emergency Department chief complaint of difficulty urinating. Patient states started over a month ago he was given antibiotics in some prostate medication by PCP to do for a week states that symptoms are better but states that he has stopped all with medication symptoms are happening again. He states that he has has hesitancy of going, sometimes unable to go, dribbling. Patient states that he gets up several times throughout the night. No dysuria. - Related Data Home Medications Medication Instructions Recorded Confirmed Omeprazole 20 mg PO QAM 03/27/18 04/12/18 allopurinoL [Zyloprim] 300 mg PO DAILY 03/27/18 04/12/18 metFORMIN HCL [Glucophage] 1,000 mg PO DAILY 03/27/18 04/12/18 ramipriL [Altace] 5 mg PO QAM 03/27/18 04/12/18 Escitalopram [Lexapro] 10 mg PO QAM 04/05/18 04/12/18 HYDROcodone/APAP 5-325MG [[place] 1 tab PO Q4HR PRN 04/12/18 04/12/18 5-325] Previous Rx's Medication Instructions Recorded Tamsulosin [Flomax] 0.4 mg PO DAILY #21 cap 11/14/21 Allergies Allergy/AdvReac Type Severity Reaction Status Date / Time No Known Allergies Allergy Verified 04/12/18 21:26 Review of Systems ROS Statement: Those systems with pertinent positive or pertinent negative responses have been documented in the HPI. ROS Other: All systems not noted in ROS Statement are negative. Past Medical History Past Medical History: Diabetes Mellitus, Hypertension Additional Past Medical History / Comment(s): diverticulitis-narrowing bowel, Goutt, MRSA right knee January 2017 History of Any Multi-Drug Resistant Organisms: None Reported Past Surgical History: Appendectomy, Joint Replacement, Orthopedic Surgery, Tonsillectomy Additional Past Surgical History / Comment(s): Shoulder Arthroscopy; Colonoscopy, bowel sx. Past Anesthesia/Blood Transfusion Reactions: No Reported Reaction Additional Past Anesthesia/Blood Transfusion Reaction / Comment(s): no hx blood transfusion Past Psychological History: No Psychological Hx Reported Past Alcohol Use History: Occasional Past Drug Use History: None Reported - Past Family History Mother Family Medical History: No Reported History General Exam Limitations: no limitations General appearance: alert, in no apparent distress Head exam: Present: atraumatic, normocephalic, normal inspection Eye exam: Present: normal appearance, PERRL, EOMI. Absent: scleral icterus, conjunctival injection, periorbital swelling ENT exam: Present: normal exam, normal oropharynx, mucous membranes moist Neck exam: Present: normal inspection, full ROM. Absent: tenderness, meningismus, lymphadenopathy Respiratory exam: Present: normal lung sounds bilaterally. Absent: respiratory distress, wheezes, rales, rhonchi, stridor Cardiovascular Exam: Present: regular rate, normal rhythm, normal heart sounds. Absent: systolic murmur, diastolic murmur, rubs, gallop, clicks GI/Abdominal exam: Present: soft, normal bowel sounds. Absent: distended, tenderness, guarding, rebound, rigid Course Vital Signs 11/14/21 06:12 Temperature 97.8 F Pulse Rate 79 Respiratory 16 Rate Blood Pressure 151/75 O2 Sat by Pulse 98 Oximetry Medical Decision Making - Medical Decision Making Patient has urinalysis which is unremarkable patient has BPH patient was started on Flomax will follow-up with urology. - Lab Data Lab Results 11/14/21 Range/Units 06:44 Urine Color Yellow Urine Appearance Clear (Clear) Urine pH 6.5 (5.0-8.0) Ur Specific [place] 1.018 (1.001-1.035) Urine Protein 1+ H (Negative) Urine Glucose (UA) Negative (Negative) Urine Ketones Negative (Negative) Urine Blood Negative (Negative) Urine Nitrite Negative (Negative) Urine Bilirubin Negative (Negative) Urine Urobilinogen <2.0 (<2.0) mg/dL Ur Leukocyte Esterase Negative (Negative) Urine RBC 3 (0-5) /hpf Urine WBC 2 (0-5) /hpf Ur Squamous Epith Cells <1 (0-4) /hpf Urine Mucus Moderate H (None) /hpf Disposition Clinical Impression: BPH (benign prostatic hyperplasia) Disposition: HOME SELF-CARE Condition: Stable Instructions (If sedation given, give patient instructions): Enlarged Prostate (BPH) (ED) Additional Instructions: Please return to the Emergency Department if symptoms worsen or any other concerns. Prescriptions: Tamsulosin [Flomax] 0.4 mg PO DAILY #21 cap Is patient prescribed a controlled substance at d/c from ED?: No Referrals: None,Stated [Primary Care Provider] - 1-2 days Time of Disposition: 07:13
[2021-11-14 07:30] VITALS: BP 142/84; PULSE 78; RESP 18
== END 2021-11-14 07:30 | disposition home or self-care (01) ==
LOC: EC 06:09
DX: N40.0 Benign prostatic hyperplasia without lower urinary tract symptoms (principal); E11.9 Type 2 diabetes mellitus without complications; I10 Essential (primary) hypertension; Z79.84 Long term (current) use of oral hypoglycemic drugs; Z79.899 Other long term (current) drug therapy
CPT/HCPCS: 51798; 81001; 99284

== ENCOUNTER 2023-03-01 16:41 | Emergency (ER) | payer MEDICARE ==
[2023-03-01 16:51] VITALS: RESP 18
--- NOTE | 2023-03-01 16:54 | ED ---
General Adult HPI - General Chief complaint: Extremity Injury, Lower Stated complaint: swollen rt toe Time Seen by Provider: 03/01/23 16:52 Source: patient Mode of arrival: ambulatory Limitations: no limitations - History of Present Illness Initial comments: 72-year-old male with a past medical history significant for gout presenting to the ED with a chief complaint of toe pain. States yesterday started to experience pain and redness at his right first toe. States yesterday, reports pain has increased in severity. Patient states pain is similar to history of gout. Is not taking any medications for this. Denies fever. Denies chest pain or shortness breath. No other complaints. - Related Data Home Medications Medication Instructions Recorded Confirmed Omeprazole 20 mg PO QAM 03/27/18 04/12/18 allopurinoL [Zyloprim] 300 mg PO DAILY 03/27/18 04/12/18 metFORMIN HCL [Glucophage] 1,000 mg PO DAILY 03/27/18 04/12/18 ramipriL [Altace] 5 mg PO QAM 03/27/18 04/12/18 Escitalopram [Lexapro] 10 mg PO QAM 04/05/18 04/12/18 HYDROcodone/APAP 5-325MG [[place] 1 tab PO Q4HR PRN 04/12/18 04/12/18 5-325] Previous Rx's Medication Instructions Recorded Tamsulosin [Flomax] 0.4 mg PO DAILY #21 cap 11/14/21 Indomethacin [Indocin] 50 mg PO TID #15 capsule 03/01/23 Allergies Allergy/AdvReac Type Severity Reaction Status Date / Time No Known Allergies Allergy Verified 04/12/18 21:26 Review of Systems ROS Statement: Those systems with pertinent positive or pertinent negative responses have been documented in the HPI. ROS Other: All systems not noted in ROS Statement are negative. Past Medical History Past Medical History: Diabetes Mellitus, Hypertension Additional Past Medical History / Comment(s): diverticulitis-narrowing bowel, Goutt, MRSA right knee January 2017 History of Any Multi-Drug Resistant Organisms: None Reported Past Surgical History: Appendectomy, Joint Replacement, Orthopedic Surgery, Tonsillectomy Additional Past Surgical History / Comment(s): Shoulder Arthroscopy; Colonoscopy, bowel sx. Past Anesthesia/Blood Transfusion Reactions: No Reported Reaction Additional Past Anesthesia/Blood Transfusion Reaction / Comment(s): no hx blood transfusion Past Psychological History: No Psychological Hx Reported Past Alcohol Use History: Occasional Past Drug Use History: None Reported - Past Family History Mother Family Medical History: No Reported History General Exam Limitations: no limitations General appearance: alert, in no apparent distress Eye exam: Present: normal appearance Neck exam: Present: normal inspection Respiratory exam: Present: normal lung sounds bilaterally Cardiovascular Exam: Present: regular rate, normal rhythm GI/Abdominal exam: Present: soft Extremities exam: Present: other (What comorbidities and tenderness to palpation at right first interphalangeal joint. No active drainage. Good strength and sensation of the toe with good active flexion and extension.) Neurological exam: Present: alert, oriented X3 Skin exam: Present: warm, dry Course Vital Signs 03/01/23 16:45 Temperature 98.0 F Pulse Rate 90 Respiratory 18 Rate Blood Pressure 145/79 O2 Sat by Pulse 97 Oximetry Medical Decision Making - Medical Decision Making Was pt. sent in by a medical professional or institution (, PA, DIVE SUPERINTENDENT, urgent care, hospital, or long-term...) When possible be specific @ -No Did you speak to anyone other than the patient for history (EMS, parent, family, police, friend...)? What history was obtained from this source @ -No Did you review nursing and triage notes (agree or disagree)? Why? @ -I reviewed and agree with nursing and triage notes Were old charts reviewed (outside hosp., previous admission, EMS record, old EKG, old radiological studies, urgent care reports/EKG's, long-term records)? Report findings @ -No old charts were reviewed Differential Diagnosis (chest pain, altered mental status, abdominal pain women, abdominal pain men, vaginal bleeding, weakness, fever, dyspnea, syncope, headache, dizziness, GI bleed, back pain, seizure, CVA, palpatations, mental health, musculoskeletal)? @ -Differential Musculoskeletal Muscular strain, contusion, ligament sprain, fracture, arthritis, septic arthritis, bursitis, cellulitis, muscle spasm, nerve compression, DVT, arterial occlusion, herpes zoster, electrolyte abnormality, tumor.... This is not meant to be in all inclusive list EKG interpreted by me (3pts min.). @ -None X-rays interpreted by me (1pt min.). @ -None done CT interpreted by me (1pt min.). @ -None done U/S interpreted by me (1pt. min.). @ -None done What testing was considered but not performed or refused? (CT, X-rays, U/S, labs)? Why? @ -None What meds were considered but not given or refused? Why? @ -None Did you discuss the management of the patient with other professionals (professionals i.e. , PA, DIVE SUPERINTENDENT, lab, RT, psych nurse, social worker aide, oil painter, teacher, sba business development officer, case briefer)? Give summary @ -No Was smoking cessation discussed for >3mins.? @ -No Was critical care preformed (if so, how long)? @ -No Were there social determinants of health that impacted care today? How? (Homelessness, low income, unemployed, alcoholism, drug addiction, transportation, low edu. Level, literacy, decrease access to med. care, halfway, rehab)? @ -No Was there de-escalation of care discussed even if they declined (Discuss DNR or withdrawal of care, Hospice)? DNR status @ -No What co-morbidities impacted this encounter? (DM, HTN, Smoking, COPD, CAD, Cancer, CVA, ARF, Chemo, Hep., AIDS, mental health diagnosis, sleep apnea, morbid obesity)? @ -Gout Was patient admitted / discharged? Hospital course, mention meds given and route, prescriptions, significant lab abnormalities, going to OR and other pertinent info. @ -Discharge 72-year-old male with past medical history gout presenting to the ED with a chief complaint of redness and pain of the right great toe for one day. Pain consistent with history of gout. Provided prescription for indomethacin. Discharged home in stable condition. At this time, unlikely cellulitis. Discussed return precautions with patient who verbalizes agreement. Undiagnosed new problem with uncertain prognosis? @ -No Drug Therapy requiring intensive monitoring for toxicity (Heparin, Nitro, Insulin, Cardizem)? @ -No Were any procedures done? @ -No Diagnosis/symptom? @ -Gout, right first toe Acute, or Chronic, or Acute on Chronic? @ -Acute Uncomplicated (without systemic symptoms) or Complicated (systemic symptoms)? @ -Uncomplicated Side effects of treatment? @ -No Exacerbation, Progression, or Severe Exacerbation? @ -No Poses a threat to life or bodily function? How? (Chest pain, [place], [place], pneumonia, PE, COPD, DKA, ARF, appy, cholecystitis, CVA, Diverticulitis, Homicidal, Suicidal, threat to staff... and all critical care pts) @ -No Disposition Clinical Impression: Gout Disposition: HOME SELF-CARE Condition: Good Instructions (If sedation given, give patient instructions): Low Purine Diet (ED), Gout (ED) Prescriptions: Indomethacin [Indocin] 50 mg PO TID #15 capsule Is patient prescribed a controlled substance at d/c from ED?: No Referrals: None,Stated [Primary Care Provider] - 1-2 days Time of Disposition: 17:41
[2023-03-01 17:56] VITALS: BP 139/82; PULSE 84; TEMP 98
== END 2023-03-01 18:22 | disposition home or self-care (01) ==
LOC: EC 16:41
DX: M10.9 Gout, unspecified (principal); E11.9 Type 2 diabetes mellitus without complications; I10 Essential (primary) hypertension; Z79.84 Long term (current) use of oral hypoglycemic drugs; Z79.899 Other long term (current) drug therapy
CPT/HCPCS: 99283

== ENCOUNTER 2023-03-07 10:49 | Emergency (ER) | payer MEDICARE ==
--- NOTE | 2023-03-07 12:05 | XR ---
EXAMINATION TYPE: XR chest 2V DATE OF EXAM: 03/07/2023 11:47 AM COMPARISON: Chest radiographs from 12/27/2018 TECHNIQUE: XR chest 2V Frontal and lateral views of the chest. CLINICAL INDICATION:Male, 72 years old with history of cough; FINDINGS: Lungs/Pleura: There is no evidence of pleural effusion or pneumothorax. Subtle bibasilar patchy airsp alysia opacities. Pulmonary vascularity: Unremarkable. Heart/mediastinum: Cardiomediastinal silhouette is unremarkable. Atherosclerotic calcifications are seen in the aorta. Musculoskeletal: No acute osseous pathology. IMPRESSION: Subtle bibasilar patchy airspace opacities concerning for infectious process such as Covid.
--- NOTE | 2023-03-07 12:41 | ED ---
URI HPI - General Chief Complaint: Upper Respiratory Infection Stated Complaint: Covid symptoms Time Seen by Provider: 03/07/23 11:15 Source: patient, RN notes reviewed Mode of arrival: ambulatory Limitations: no limitations - History of Present Illness Initial Comments: 72-year-old male presents emergency from chief complaint of congestion, cough. Patient's symptoms started today. Patient states this feels achy all over, does not feel well. Patient also complains of some left ear pain. No chest pain shortness of breath no headache or dizziness. Patient offers no complaints. - Related Data Home Medications Medication Instructions Recorded Confirmed Omeprazole 20 mg PO QAM 03/27/18 04/12/18 allopurinoL [Zyloprim] 300 mg PO DAILY 03/27/18 04/12/18 metFORMIN HCL [Glucophage] 1,000 mg PO DAILY 03/27/18 04/12/18 ramipriL [Altace] 5 mg PO QAM 03/27/18 04/12/18 Escitalopram [Lexapro] 10 mg PO QAM 04/05/18 04/12/18 HYDROcodone/APAP 5-325MG [[place] 1 tab PO Q4HR PRN 04/12/18 04/12/18 5-325] Previous Rx's Medication Instructions Recorded Tamsulosin [Flomax] 0.4 mg PO DAILY #21 cap 11/14/21 Indomethacin [Indocin] 50 mg PO TID #15 capsule 03/01/23 Allergies Allergy/AdvReac Type Severity Reaction Status Date / Time No Known Allergies Allergy Verified 04/12/18 21:26 Review of Systems ROS Statement: Those systems with pertinent positive or pertinent negative responses have been documented in the HPI. ROS Other: All systems not noted in ROS Statement are negative. Past Medical History Past Medical History: Diabetes Mellitus, Hypertension Additional Past Medical History / Comment(s): diverticulitis-narrowing bowel, Goutt, MRSA right knee January 2017 History of Any Multi-Drug Resistant Organisms: None Reported Past Surgical History: Appendectomy, Joint Replacement, Orthopedic Surgery, Tonsillectomy Additional Past Surgical History / Comment(s): Shoulder Arthroscopy; Colonoscopy, bowel sx. Past Anesthesia/Blood Transfusion Reactions: No Reported Reaction Additional Past Anesthesia/Blood Transfusion Reaction / Comment(s): no hx blood transfusion Past Psychological History: No Psychological Hx Reported Smoking Status: Former smoker Past Alcohol Use History: Occasional Past Drug Use History: None Reported - Past Family History Mother Family Medical History: No Reported History General Exam Limitations: no limitations General appearance: alert, in no apparent distress Head exam: Present: atraumatic, normocephalic, normal inspection Eye exam: Present: normal appearance, PERRL, EOMI. Absent: scleral icterus, conjunctival injection, periorbital swelling ENT exam: Present: normal exam, normal oropharynx, mucous membranes moist Neck exam: Present: normal inspection, full ROM. Absent: tenderness, meningismus, lymphadenopathy Respiratory exam: Present: normal lung sounds bilaterally. Absent: respiratory distress, wheezes, rales, rhonchi, stridor Cardiovascular Exam: Present: regular rate, normal rhythm, normal heart sounds. Absent: systolic murmur, diastolic murmur, rubs, gallop, clicks GI/Abdominal exam: Present: soft, normal bowel sounds. Absent: distended, tenderness, guarding, rebound, rigid Course Vital Signs 03/07/23 11:00 Temperature 98.4 F Pulse Rate 79 Respiratory 20 Rate Blood Pressure 146/66 O2 Sat by Pulse 96 Oximetry Medical Decision Making - Medical Decision Making Was pt. sent in by a medical professional or institution (, PA, MEDICAL OFFICE TECHNOLOGIST, urgent care, hospital, or halfway...) When possible be specific @ -none Did you speak to anyone other than the patient for history (EMS, parent, family, police, friend...)? What history was obtained from this source @ -No Did you review nursing and triage notes (agree or disagree)? Why? @ -I reviewed and agree with nursing and triage notes Were old charts reviewed (outside hosp., previous admission, EMS record, old EKG, old radiological studies, urgent care reports/EKG's, halfway records)? Report findings @ -No old charts were reviewed Differential Diagnosis (chest pain, altered mental status, abdominal pain women, abdominal pain men, vaginal bleeding, weakness, fever, dyspnea, syncope, headache, dizziness, GI bleed, back pain, seizure, CVA, palpatations, mental health, musculoskeletal)? @ -covid 19 URI, pneumonia, influenza EKG interpreted by me (3pts min.). @ -[None X-rays interpreted by me (1pt min.). @ -Chest x-ray shows no significant finding possible subtle basilar infiltrate for Covid 19 CT interpreted by me (1pt min.). @ -None done U/S interpreted by me (1pt. min.). @ -None done What testing was considered but not performed or refused? (CT, X-rays, U/S, labs)? Why? @ -None What meds were considered but not given or refused? Why? @ -None Did you discuss the management of the patient with other professionals (professionals i.e. DrTip, PA, MEDICAL OFFICE TECHNOLOGIST, lab, RT, psych nurse, social media specialist, oleomargarine maker, teacher, chief business development officer, manager bank)? Give summary @ -No Was smoking cessation discussed for >3mins.? @ -No Was critical care preformed (if so, how long)? @ -No Were there social determinants of health that impacted care today? How? (Homelessness, low income, unemployed, alcoholism, drug addiction, transportation, low edu. Level, literacy, decrease access to med. care, senior living, rehab)? @ -No Was there de-escalation of care discussed even if they declined (Discuss DNR or withdrawal of care, Hospice)? DNR status @ -No What co-morbidities impacted this encounter? (DM, HTN, Smoking, COPD, CAD, Cancer, CVA, ARF, Chemo, Hep., AIDS, mental health diagnosis, sleep apnea, morbid obesity)? @ -None Was patient admitted / discharged? Hospital course, mention meds given and r oute, prescriptions, significant lab abnormalities, going to OR and other pertinent info. @ -[Discharge patient has a viral URI patient is vital stable, no signs of distress patient had negativeviral panel Undiagnosed new problem with uncertain prognosis? @ -No Drug Therapy requiring intensive monitoring for toxicity (Heparin, Nitro, Insulin, Cardizem)? @ -No Were any procedures done? @ -No Diagnosis/symptom? @ -uri Acute, or Chronic, or Acute on Chronic? @ -Acute Uncomplicated (without systemic symptoms) or Complicated (systemic symptoms)? @ -Uncomplicated Side effects of treatment? @ -No Exacerbation, Progression, or Severe Exacerbation? @ -No Poses a threat to life or bodily function? How? (Chest pain, [place], [place], pneumonia, PE, COPD, DKA, ARF, appy, cholecystitis, CVA, Diverticulitis, Homicidal, Suicidal, threat to staff... and all critical care pts) @ -No - Lab Data Lab Results 03/07/23 Range/Units 11:40 Influenza Type A (PCR) Not Detected (Not Detectd) Influenza Type B (PCR) Not Detected (Not Detectd) RSV (PCR) Not Detected (Not Detectd) SARS-CoV-2 (PCR) Not Detected (Not Detectd) Disposition Clinical Impression: Acute upper respiratory infection Disposition: HOME SELF-CARE Condition: Stable Instructions (If sedation given, give patient instructions): Upper Respiratory Infection (ED) Additional Instructions: Please return to the Emergency Department if symptoms worsen or any other concerns. Is patient prescribed a controlled substance at d/c from ED?: No Referrals: Nonstaff,Physician [Primary Care Provider] - 1-2 days Time of Disposition: 12:41
[2023-03-07 12:56] VITALS: BP 138/66; PULSE 70; RESP 18; TEMP 98
== END 2023-03-07 13:22 | disposition home or self-care (01) ==
LOC: EC 10:49
DX: J06.9 Acute upper respiratory infection, unspecified (principal); E11.9 Type 2 diabetes mellitus without complications; I10 Essential (primary) hypertension; Z79.84 Long term (current) use of oral hypoglycemic drugs; Z87.891 Personal history of nicotine dependence; Z20.822 Contact with and (suspected) exposure to COVID-19
CPT/HCPCS: 71046; 87636; 99284